=== PATIENT | female | born 1980 | race Caucasian/White ===

== ENCOUNTER 2024-04-29 08:03 | Emergency (ER) | payer OTHER, SELFPAY ==
--- NOTE | 2024-04-29 08:07 | ED_ITS ---
HPI - URI/Sore Throat General Chief Complaint: Upper Respiratory Infection Stated Complaint: Hot Flashes Time Seen by Provider: 04/29/24 08:06 Source: patient Mode of arrival: ambulatory Limitations: no limitations History of Present Illness HPI Narrative: Patient is a 44-year-old female who presents with burning sensation in chest that radiates up to her ears for 2 hours. Denies any chest pain, shortness of breath, numbness, tingling or weakness in extremities. Patient states she has had some congestion but does have severe allergies and does take allergy medicine daily. Denies any sore throat, cough, known fevers, chills, nausea, vomiting, diarrhea. Patient does have history of high blood pressure in states she has family history of heart disease. Patient also has anxiety and states the sensation has caused more anxiety due to concern for heart-related symptoms. Related Data Allergies Allergy/AdvReac Type Severity Reaction Status Date / Time Sulfa (Sulfonamide Allergy Unknown Hives Verified 04/29/24 08:24 Antibiotics) Review of Systems Review of Systems: All systems reviewed & are unremarkable except as noted in HPI and below Constitutional: Constitutional: Denies chills, Denies fatigue, Denies fever(s), Denies headache(s), Denies malaise and Denies weakness Eyes: Eyes: Denies blurry vision, Denies itchy eyes and Denies loss of vision ENT: Denies otalgia, Denies headache(s), Reports nasal congestion, Denies sinus pain and Denies sore throat Cardiovascular: Cardiovascular: Denies chest pain, Denies irregular heart rhythm and Denies dyspnea Respiratory: Respiratory: Denies cough and Denies dyspnea Gastrointestinal: Gastrointestinal: Denies abdominal pain, Denies diarrhea, Denies nausea and Denies vomiting Musculoskeletal: Musculoskeletal: Denies back pain, Denies myalgias and Denies arthralgias Integumentary/Breasts: Skin/Breast: Denies pruritus and Denies rash Neurologic: Denies headache(s), Denies loss of vision and Denies weakness Psychiatric: Psychiatric: Reports no additional psychiatric complaints Endocrine: Endocrine: Denies fatigue and Reports flushing Allergic/Immunologic: Allergic/Immunologic: Denies itchy eyes PMFSH Comments At time of signature, agree with nursing past medical, surgical, social and family history. There is no relevant family history pertinent to the presenting complaint. Exam Const: General: cooperative, healthy appearing, comfortable, no acute distress and well nourished Nutritional Appearance: well nourished Orientation/consciousness: patient oriented x3 Limitations: no limitations HENMT: Head: normal to inspection, normocephalic and atraumatic Ears: hearing grossly normal bilaterally, external ears normal, TM's normal bilaterally, EAC's normal and no periauricular adenopathy Face/Nose/Sinus: Normal external nose present, Abnormal mucous membranes and turbinates present erythematous bilateral and diffuse, normal facial exam, sinuses nontender and face symmetric Face and sinus: normal facial exam, sinuses nontender and face symmetric Mouth: Yes Normal oral and palatal mucosa present, Yes lip normal, Yes tongue normal, Yes Normal salivary glands and ducts present, Yes oropharynx normal and Yes moist mucous membranes Teeth and gingiva: dentition normal Throat: posterior oropharynx normal, tonsils normal and uvula midline Eyes: General: appearance normal, both eyes and all related structures Alignment and Position: alignment normal and position normal Periorbital: periorbital findings normal Eyelids: eyelids normal Pupils: Equal, round and reactive pupils present Neck: Neck: normal visual inspection, full ROM, no lymphadenopathy and supple Chest: Chest palpation & inspection: normal inspection of the chest and normal palpation of entire chest wall Resp: Effort & Inspection: normal respiratory effort and able to speak in complete sentences Auscultation: clear to auscultation bilaterally, no crackles, no rales, no rhonchi and no wheezes Cardio: Rate: regular rate Rhythm: regular rhythm Heart sounds: S1 normal heart sound present and S2 normal heart sound present GI: Inspection: normal to inspection Skin: General skin exam: normal color and no rashes or lesions noted Neuro: General: patient oriented x3 and moves all extremities Cranial nerves: Yes Equal, round and reactive pupils present Speech: normal speech Gait exam (Neuro): Normal gait present Extrem: General: normal to inspection, full ROM and no edema Psych: Appearance: grossly normal and well kempt Mental Status: mental status grossly normal Speech and movement: Normal speech and movement present Affect: normal affect Attitude: cooperative Thought process: Normal thought process present Course Course Emergency Course: Discharge instructions reviewed with patient, as well as provided in writing per nursing staff. The instructions also include specific and strict return/GO TO THE ER as well as f/u information. All questions have been answered, and the patient deny any further questions with discharge and discharge plan. Portions of this record may have been created with voice recognition software Level of Care: Express Care Visit Vital Signs Vital signs: Vital Signs Temperature 36.6 C 04/29/24 08:15 Pulse Rate 90 04/29/24 08:15 Respiratory Rate 16 04/29/24 08:15 Blood Pressure 141/76 H 04/29/24 08:15 Pulse Oximetry 100 04/29/24 08:15 Oxygen Delivery Room Air 04/29/24 08:15 Temperature 36.6 C 04/29/24 08:15 Pulse Rate 90 04/29/24 08:15 Respiratory Rate 16 04/29/24 08:15 Blood Pressure 141/76 H 04/29/24 08:15 Pulse Oximetry 100 04/29/24 08:15 Oxygen Delivery Room Air 04/29/24 08:15 Reviewed MDM - URI/Sore Throat MDM Narrative Medical decision making narrative: Discussed EKG results with patient. Patient states she was relieved. Denies any burning sensations at this time. Patient states she has also had changes in her control 2 weeks ago to a different hormone level. Patient states she is going to make appointment with PCP to follow up for full physical exam. Patient does states she had labs with her OBGYN in March. Discussed red flag symptoms and patient is able to repeat back signs and symptoms that require emergency room visit. Also discussed negative COVID in flu findings. Did discuss if symptoms progress to body aches, fever, chills, sore throat, cough those are signs of viral upper respiratory illness. Pt well hydrated appearing, in no respiratory distress, hemodynamically stable. Recommend supportive care. The patient is stable at time of discharge the clinical impression was discussed and the patient was given the opportunity to ask questions, which were addressed as completely as possible given the information available at present. Anticipatory guidance and return to care precautions were discussed and the importance of primary care follow-up was stressed and encouraged. The patient voiced understanding of the plan, indications to return, and the need for follow-up. Differential diagnosis considered: Bronchitis, Rivera virus, strep pharyngitis, allergic rhinitis, upper respiratory tract infection, sinusitis, rhinosinusitis, nasopharyngitis. viral pharyngitis, otitis media, otitis externa, otitis effusion, foreign body, cerumen impaction, viral syndrome, and influenza.? Exam findings show no acute concerns or changes; patient is non-toxic appearing and is in no distress.? Patient is appropriate for outpatient treatment and follow- up.? Differential Diagnosis Differential diagnosis: Likely other (Anxiety, less likely ACS) Medical Records Attestation: I reviewed the patient's medical records. Lab Data Attestation: I reviewed the patient's lab results. Labs: Lab Results 04/29/24 Range/Units 08:37 POC Influenza A Ag Negative (Negative) POC Influenza B Ag Negative (Negative) POC SARS CoV-2 Ag Negative (Negative) ECG Data EKG #1: Attestation: I personally reviewed and interpreted this ECG as follows: ECG completion date: 04/29/24 ECG completion time: 08:32 Prior ECG tracings: not available for review Interpretation: EKG: VR[80], LA int[157], QRS dur:[89], QT/QTc: [351/387], PRT axes: [36 31 11], no ST elevation or depression EKG Interpretation: normal rate and sinus rhythm Discharge Plan Discharge Clinical Impression: Burning in the chest, Anxiety Patient Disposition: Home, Self-Care Condition: Stable Instructions: Anxiety (ED) Additional Instructions: How do you know when anxiety is a medical problem? Everyone feels anxious or nervous once in a while. That is normal. But being extremely anxious or worried on most days for 6 months or longer is not normal. This is called generalized anxiety disorder. The disorder can make it hard to do everyday tasks. ? Generalized anxiety disorder is just 1 anxiety disorder. There are others, such as panic disorder and phobias. This article focuses on generalized anxiety disorder. ? What are the symptoms of extreme or severe anxiety? People with extreme or severe anxiety feel very worried or on edge much of the time. They can have trouble sleeping or forget things. Plus, they can have physical symptoms. For instance, people with severe anxiety often feel very tired and have tense muscles. Some get stomach aches or feel chest tightness. ? Should I see a doctor or nurse? See your doctor or nurse if you: 1.Are more anxious than you think is normal 2.Get overly anxious about things that other people handle more easily ? Your doctor or nurse can ask you questions that are designed to measure a person's anxiety level. If you do have a problem with anxiety, there are different treatments that can help. ? Is there anything I can do on my own to feel better? Yes. Exercise can help many people feel less anxious. It's also a good idea to cut down on or stop drinking coffee and other sources of caffeine. Caffeine can make anxiety worse. ? How is anxiety treated? Treatments include: ? 1.Psychotherapy - Psychotherapy involves meeting with a mental health counselor to talk about your feelings, relationships, and worries. Therapy can help you find new ways of thinking about your situation so that you feel less anxious. In therapy, you might also learn new skills to reduce anxiety. ? 2.Medicines - Medicines used to treat depression can relieve anxiety, too, even in people who are not depressed. Your doctor or nurse will decide which medicines are best for your situation. ? Some people have psychotherapy and take medicines at the same time. ? There is no reason to feel embarrassed about getting treatment for anxiety. Anxiety is a common problem. It affects all kinds of people. ? Keep in mind that it might take a little while to find the right treatment. People respond in different ways to medicines and therapy, so you might need to try a few approaches before you find the 1 that helps you most. The pineda is to not give up and to let your doctor or nurse know how you feel along the way. Are there herbal treatments I can take? Makers of herbal drugs sometimes claim that their products relieve anxiety. For example, herbs called kava kava and valerian are sold as treatments for anxiety. But there is no evidence that these treatments work. Plus, kava kava has been linked with serious liver damage. It might not be safe. What will my life be like? People with anxiety disorders often have to deal with some anxiety for the rest of their life. For some, anxiety comes and goes, but gets bad during times of stress. The good news is, many people find effective treatments or ways to deal with their anxiety. Your blood pressure was elevated above 120/80 today at Urgent Care. This puts you above the threshold for follow up visit with a primary care provider. High blood pressure does not usually cause any symptoms, however it may lead to kidney failure, stroke, heart disease just to name a few if untreated . Many people are anxious when seeing a provider or nurse. As a result, you are not diagnosed with hypertension at this time unless your blood pressure is persistently high at two office visits at least one week apart. Some things that can help lower blood pressure are lifestyle modifications, such as light exercise, decreased salt in diet, and weight loss. It is important to follow up with a PCP about this within 1 week. Patient Language: Kyrgyz Follow-up/Referrals: Yoselin,Doretha [Other] - 3 Days Time of Disposition: 08:44
[2024-04-29 08:15] VITALS: BP 141/76; PULSE 90; RESP 16; TEMP 36.6; O2SAT 100
--- OUTSIDE RECORDS SUMMARY | 2024-04-29 08:15 | XMS_ITS | Referral Summary ---
Author Organization [facility] [address] [address] [address] Care Team Providers Care Counter Stitcher Name Role Phone Cecile Mejia MD Unavailable [phone] No, Physician Primary Care Provider [phone] Encounters Date Type Department Care Team Description 03/17/2024 11:25 AM WATER QUALITY TECHNICIAN Ancillary Procedure [facility] [address] [place] [phone] Irregular menstruation 03/13/2024 11:30 AM WATER QUALITY TECHNICIAN Office Visit [facility] [place] [phone] Cecile Mejia MD Encounter for well woman exam with routine gynecological exam (Primary Dx); Encounter for routine examination for contraception; Irregular menstruation from Last 3 Months Allergies Active Allergy Reactions Criticality Noted Date Comments Cheese Itching,Rash Medium 03/05/2005 Hydrocodone-Acetamino phen Nausea And Vomiting Medium 05/30/2016 Iodinated Contrast Media Itching,Rash Medium 03/05/2005 Other Itching,Rash Medium 03/05/2005 Sulfa (Sulfonamide Antibiotics) Unknown,Other (See comments) Low 01/02/2014 To young to remember Medications simethicone 62.5 mg strip Take by mouth daily as needed Active cetirizine (ZyrTEC) 10 mg tablet Take 1 tablet (10 mg total) by mouth daily Active naproxen (ALEVE) 220 mg tablet Take 1 tablet (220 mg total) by mouth every 4 (four) hours as needed Active buPROPion XL (WELLBUTRIN XL) 150 mg 24 hr tabletIndications: Other depression TAKE 1 TABLET DAILY 90 tablet 3 3 Active metoprolol XL (TOPROL-XL) 25 mg extended release tablet Take 1 tablet (25 mg total) by mouth daily 3 Active montelukast (SINGULAIR) 10 mg tablet Take 1 tablet (10 mg total) by mouth daily 4 Active norethindrone-e.es tradioL-iron (Loestrin Fe 03/24, 28-Day,) 1 mg-20 mcg (21)/75 mg (7) per tabletIndications: Contraception Take 1 tablet by mouth daily Take one tablet daily 84 tablet 4 5 Active Active Problems No known active problems Social History Tobacco Use Types Packs/Day Years Used Date Smoking Tobacco: Never Passive Smoke Exposure: Never Smokeless Tobacco: Never Tobacco Cessation:Counseling Given: Not Answered Comments No Sex and Gender Information Value Date Recorded Sex Assigned at Not on file Legal Sex Female 9:31 AM WATER QUALITY TECHNICIAN Gender Identity Female 02/01/2021 9:00 AM WATER QUALITY TECHNICIAN Sexual Orientation Straight 02/01/2021 9: 00 AM WATER QUALITY TECHNICIAN Last Filed Vital Signs Vital Sign Reading Time Taken Comments Blood Pressure 136/68 03/13/2024 11:26 AM WATER QUALITY TECHNICIAN Pulse - - Temperature - - Respiratory Rate - - Oxygen Saturation - - Inhaled Oxygen Concentration - - Weight 107.5 kg (237 lb) 03/13/2024 11:26 AM WATER QUALITY TECHNICIAN Height 165.1 cm (5' 5 ) 03/13/2024 11:26 AM WATER QUALITY TECHNICIAN Body Mass Index 39.44 03/13/2024 11:26 AM WATER QUALITY TECHNICIAN Plan of Treatment Not on file Procedures Procedure Name Priority Date/Time Associated Diagnosis Comments CBC WITH AUTO DIFFERENTIAL Routine 03/25/2024 7:13 AM WATER QUALITY TECHNICIAN Irregular menstruation INSULIN, TOTAL Routine 03/25/2024 7:13 AM WATER QUALITY TECHNICIAN Irregular menstruation TSH Routine 03/25/2024 7:13 AM WATER QUALITY TECHNICIAN Irregular menstruation T4, FREE Routine 03/25/2024 7:13 AM WATER QUALITY TECHNICIAN Irregular menstruation T3, FREE Routine 03/25/2024 7:13 AM WATER QUALITY TECHNICIAN Irregular menstruation TESTOSTERONE, TOTAL AND FREE, SERUM Routine 03/25/2024 7:13 AM WATER QUALITY TECHNICIAN Irregular menstruation PROLACTIN Routine 03/25/2024 7:13 AM WATER QUALITY TECHNICIAN Irregular menstruation LIPID PANEL Routine 03/25/2024 7:13 AM WATER QUALITY TECHNICIAN Irregular menstruation COMPREHENSIVE METABOLIC PANEL Routine 03/25/2024 7:13 AM WATER QUALITY TECHNICIAN Irregular menstruation US TRANSVAGINAL Schedule Routine, Read Routine (OP Routine) 03/17/2024 11:22 AM WATER QUALITY TECHNICIAN Irregular menstruation THINPREP IMAGING PAP AND HPV MRNA E6/E7 REFLEX HPV 16,18/45 Routine 03/13/2024 1:54 PM WATER QUALITY TECHNICIAN Encounter for well woman exam with routine gynecological exam SCREENING MAMMOGRAM BILATERAL W WEN Schedule Routine, Read Routine (OP Routine) 10/02/2023 2:19 PM CDT Encounter for screening mammogram for malignant neoplasm of breast from Last 3 Months or Most Recently Relevant to Health Maintenance Results * (ABNORMAL) CBC with auto differential (03/25/2024 7:13 AM WATER QUALITY TECHNICIAN) WBC 8.6 3.8 - 10.8 Thousand/u L [facility] RBC, POC 4.26 3.80 - 5.10 Million/uL [facility] Hgb 13.3 11.7 - 15.5 g/dL [facility] Hct 39.8 35.0 - 45.0 % [facility] MCV 93.4 80.0 - 100.0 fL [facility] MCH 31.2 27.0 - 33.0 pg [facility] MCHC 33.4 32.0 - 36.0 g/dL [facility] Comment: For adults, a slight decrease in the calculated MCHC value (in the range of 30 to 32 g/dL) is most likely not clinically significant; however, it should be interpreted with caution in correlation with other red cell parameters and the patient's clinical condition. Rdw 11.6 11.0 - 15.0 % [facility] Platelets 340 140 - 400 Thousand/u L [facility] MPV 10.6 7.5 - 12.5 fL [facility] Neutrophils, abs 3,836 1,500 - 7,800 cells/uL [facility] Lymphocytes, abs 4,076(H) 850 - 3,900 cells/uL [facility] Monocyte abs 550 200 - 950 cells/uL [facility] Eosinophils, abs 77 15 - 500 cells/uL [facility] Basophils, abs 60 0 - 200 cells/uL [facility] Neutrophils 44.6 % [facility] Lymphocyte pct 47.4 % [facility] Monocytes 6.4 % [facility] Eosinophils 0.9 % [facility] Basophils 0.7 % [facility] Blood 03/25/2024 7:13 AM WATER QUALITY TECHNICIAN 03/25/2024 7:13 AM WATER QUALITY TECHNICIAN Narrative [facility] - 03/31/2024 8:17 PM WATER QUALITY TECHNICIAN FASTING:YES FASTING: YES Cecile Mejia MD LAB BLOOD ORDERABLES Monisha l Result [facility] [address] [facility] [place] [address] * Prolactin (03/25/2024 7:13 AM WATER QUALITY TECHNICIAN) Pathologist [facility] Prolactin 17.8 ng/mL [facility] Comment: Reference Range Females Non- 3.0-30.0 10.0-209.0 Postmenopausal 2.0-20.0 Blood 03/25/2024 7:13 AM WATER QUALITY TECHNICIAN 03/25/2024 7:13 AM WATER QUALITY TECHNICIAN Narrative [facility] - 03/31/2024 8:17 PM WATER QUALITY TECHNICIAN FASTING:YES FASTING: YES Cecile Mejia MD LAB BLOOD ORDERABLES Monisha l Result Performing Organization Address [facility] de Phone Number SAM [facility] [address] [place] [address] * Insulin, total (03/25/2024 7:13 AM WATER QUALITY TECHNICIAN) [facility] INSULIN 9.4 uIU/mL [facility] Comment: Reference Range < or = 18.4 Risk: Optimal < or = 18.4 Moderate NA High >18.4 Adult cardiovascular event risk category cut points (optimal, moderate, high) are based on Insulin Reference Interval studies performed at [facility] in 2021. Blood 03/25/2024 7:13 AM WATER QUALITY TECHNICIAN 03/25/2024 7:13 AM WATER QUALITY TECHNICIAN Narrative [facility] - 03/31/2024 8:17 PM WATER QUALITY TECHNICIAN FASTING:YES FASTING: YES Cecile Mejia MD LAB BLOOD ORDERABLES Monisha l Result Performing Organization Address [facility] de Phone Number [facility] [address] [place] [address] * Testosterone, Total and Free, Serum (03/25/2024 7:13 AM WATER QUALITY TECHNICIAN) [facility] Testosterone 26 2 - 45 ng/dL [facility] Comment: For additional information, please refer to https://education.Lendino/faq/MGB852 (This link is being provided for informational/educational purposes only.) (Note) This test was developed and its analytical performance characteristics have been determined by [facility]. It has not been cleared or approved by the FDA. This assay has been validated pursuant to the CLIA regulations and is used for clinical purposes. Testosterone, free 2.2 0.1 - 6.4 pg/mL [facility] Comment: (Note) This test was developed and its analytical performance characteristics have been determined by [facility]. It has not been cleared or approved by the FDA. This assay has been validated pursuant to the CLIA regulations and is used for clinical purposes. [facility] [address] [address],[address] [facility] [address] Armin Aguilera MD, PhD Sex hormone binding globulin 75.7 17 - 124 nmol/L [facility] Blood 03/25/2024 7:13 AM WATER QUALITY TECHNICIAN 03/25/2024 7:13 AM WATER QUALITY TECHNICIAN Narrative [facility] - 03/31/2024 8:17 PM WATER QUALITY TECHNICIAN FASTING:YES FASTING: YES Cecile Mejia MD LAB BLOOD ORDERABLES Monisha l Result [facility] [address] [place] [address], [address] [place] [phone] * T3, free (03/25/2024 7:13 AM WATER QUALITY TECHNICIAN) Free T3 3.6 2.3 - 4.2 pg/mL [facility] Blood 03/25/2024 7:13 AM WATER QUALITY TECHNICIAN 03/25/2024 7:13 AM WATER QUALITY TECHNICIAN Narrative [facility] - 03/31/2024 8:17 PM WATER QUALITY TECHNICIAN FASTING:YES FASTING: YES Cecile Mejia MD LAB BLOOD ORDERABLES Monisha l Result [facility] [address] [place] [address] * TSH (03/25/2024 7:13 AM WATER QUALITY TECHNICIAN) TSH 3.81 mIU/L [facility] Comment: Reference Range > or = 20 Years 0.40-4.50 Ranges First trimester 0.26-2.66 Second trimester 0.55-2.73 Third trimester 0.43-2.91 Blood 03/25/2024 7:13 AM WATER QUALITY TECHNICIAN 03/25/2024 7:13 AM WATER QUALITY TECHNICIAN Narrative [facility] - 03/31/2024 8:17 PM WATER QUALITY TECHNICIAN FASTING:YES FASTING: YES Cecile Mejia MD LAB BLOOD ORDERABLES Monisha l Result Performing Organization Address [facility]/ZIP Co de Phone Number SAM [facility] [address] [place] [address] * T4, free (03/25/2024 7:13 AM WATER QUALITY TECHNICIAN) Free T4 1.0 0.8 - 1.8 ng/dL [facility] Blood 03/25/2024 7:13 AM WATER QUALITY TECHNICIAN 03/25/2024 7:13 AM WATER QUALITY TECHNICIAN Narrative [facility] - 03/31/2024 8:17 PM WATER QUALITY TECHNICIAN FASTING:YES FASTING: YES Cecile Mejia MD LAB BLOOD ORDERABLES Monisha l Result Performing Organization Address [facility] de Phone Number [facility] [address] [place] [address] * (ABNORMAL) Lipid panel (03/25/2024 7:13 AM WATER QUALITY TECHNICIAN) Cholesterol 195 <200 mg/dL [facility] HDL 66 > OR = 50 mg/dL [facility] Triglycerides 113 <150 mg/dL [facility] LDL 108(H) mg/dL (calc) [facility] Comment: Reference range: <100 Desirable range <100 mg/dL for primary prevention; <70 mg/dL for patients with CHD or diabetic patients with > or = 2 CHD risk factors. LDL-C is now calculated using the Kobi-Rama calculation, which is a validated novel method providing better accuracy than the Friedewald equation in the estimation of LDL-C. Kobi SS et al. ELIZABETH. 2013;310(19): 6336-0457 (http://education.Inofile.[employer]/faq/AYZ183) Chol/HDL ratio 3.0 <5.0 (calc) [facility] Non-HDL, (LDL+VLDL) 129 <130 mg/dL (calc) [facility] Comment: For patients with diabetes plus 1 major ASCVD risk factor, treating to a non-HDL-C goal of <100 mg/dL (LDL-C of <70 mg/dL) is considered a therapeutic option. Blood 03/25/2024 7:13 AM WATER QUALITY TECHNICIAN 03/25/2024 7:13 AM WATER QUALITY TECHNICIAN Narrative [facility] - 03/31/2024 8:17 PM WATER QUALITY TECHNICIAN FASTING:YES FASTING: YES us Cecile Mejia MD LAB BLOOD ORDERABLES Monisha l Result [facility] [address] [place] [address] * Comprehensive metabolic panel (03/25/2024 7:13 AM WATER QUALITY TECHNICIAN) Pathologist [facility] Glucose 87 65 - 99 mg/dL [facility] Comment: Fasting reference interval BUN 14 7 - 25 mg/dL [facility] Creatinine 0.93 0.50 - 0.99 mg/dL [facility] eGFR 79 > OR = 60 mL/min/1.7 3m2 [facility] BUN/creat ratio SEE NOTE: 6 - 22 (calc) [facility] Comment: Not Reported: BUN and Creatinine are within reference range. Sodium 137 135 - 146 mmol/L [facility] Potassium, pl 4.2 3.5 - 5.3 mmol/L [facility] Chloride 102 98 - 110 mmol/L [facility] CO2 28 20 - 32 mmol/L [facility] Calcium 9.1 8.6 - 10.2 mg/dL [facility] Protein, sr 6.7 6.1 - 8.1 g/dL [facility] Albumin 3.9 3.6 - 5.1 g/dL [facility] GLOBULIN 2.8 1.9 - 3.7 g/dL (calc) [facility] Alb/glob ratio 1.4 1.0 - 2.5 (calc) [facility] Bilirubin, total 0.4 0.2 - 1.2 mg/dL [facility] Alk phos 65 31 - 125 U/L [facility] AST 14 10 - 30 U/L [facility] ALT (SGPT) 16 6 - 29 U/L [facility] Blood 03/25/2024 7:13 AM WATER QUALITY TECHNICIAN 03/25/2024 7:13 AM WATER QUALITY TECHNICIAN Narrative [facility] - 03/31/2024 8:17 PM WATER QUALITY TECHNICIAN FASTING:YES FASTING: YES us Cecile Mejia MD LAB BLOOD ORDERABLES Monisha l Result [facility] [address] [facility] [place] [address] * US Transvaginal (03/17/2024 11:22 AM WATER QUALITY TECHNICIAN) [place] No free fluid visualized [facility] Endometrial Thickness 4.1 mm&millim eters [facility] Anatomical Region Laterality Modality Pelvis N/A Ultrasound 03/17/2024 11:2 8 AM WATER QUALITY TECHNICIAN Impressions 03/19/2024 11:41 AM WATER QUALITY TECHNICIAN Uterus: Size 65 mm x 29 mm x 24 mm. Endometrial thickness, total 4.1 mm Right Ovary: Size 11 mm x 20 mm x 18 mm Left Ovary: Size 11 mm x 18 mm x 10 mm. Normal pelvic anatomy. Narrative Procedure Note Cecile Mejia MD - 03/19/2024 IMPRESSION: Uterus: Size 65 mm x 29 mm x 24 mm. Endometrial thickness, total 4.1 mm Right Ovary: Size 11 mm x 20 mm x 18 mm Left Ovary: Size 11 mm x 18 mm x 10 mm. Normal pelvic anatomy. Cecile Mejia MD IMG US PROCEDURES Final R esult * ThinPrep(R) Imaging Pap and HPV mRNA E6/E7 Reflex HPV 16,18/45 (03/13/2024 1:54 PM WATER QUALITY TECHNICIAN) CLINICAL INFORMATION: [facility] Comment:None given LMP [facility] Comment:None given Previous Pap [facility] Comment:None given Prev. Bx [facility] Comment:None given SOURCE: [facility] Comment:None given Pap, specimen adequacy [facility] Comment: Satisfactory for evaluation. Endocervical/transformation zone component present. Age and/or menstrual status not provided HPV interp [facility] Comment: Cytology Results: Negative for intraepithelial lesion or malignancy. COMMENTS [facility] Comment: This Pap test has been evaluated with computer assisted technology. Director Que [facility] Comment: PCM, CT(ASCP) CT Screening Location: [place] [address] [address] [place] [address] Comment [facility] Comment: EXPLANATORY NOTE: The Pap is a screening test for cervical cancer. It is not a diagnostic test and is subject to false negative and false positive results. It is most reliable when a satisfactory sample, regularly obtained, is submitted with relevant clinical findings and history, and when the Pap result is evaluated along with historic and current clinical information. Human papillomavirus RNA, High Risk E6/E7 Not Detected Not Detected [facility] Comment: Methodology: Performance Test Consultant-Mediated Amplification This assay detects E6/E7 viral messenger RNA (mRNA) from 14 high-risk HPV types (16,18,31,33,35,39,45,51,52,56,58,59,66,68). Cervical sources are required for HPV testing. If a vaginal source from a patient who has had a total hysterectomy with removal of cervix was submitted, please contact the testing laboratory for alternative testing options. For additional information, please refer to http://education.Lendino/faq/MNL232s6 (This link if provided for information/ educational purposes only.) Swab (Cervical) 03/13/2024 1 :54 PM WATER QUALITY TECHNICIAN 03/14/2024 2:30 AM WATER QUALITY TECHNICIAN us Cecile Mejia MD LAB CYTOLOGY ORDERABLES F inal Result [facility] [address] [address] [place] [address] [facility] [address] [place] [address] * SCREENING MAMMOGRAM BILATERAL W WEN (10/02/2023 2:19 PM CDT) Anatomical Region Laterality Modality Breast Bilateral Mammography Narrative 10/02/2023 4:29 PM CDT Examination: SCREENING MAMMOGRAM BILATERAL W WEN: 10/02/23 Clinical: Encounter for screening mammogram for malignant neoplasm of breast. Prior Study Comparisons: Comparison was made to the prior available relevant studies at the time of interpretation. Findings: Bilateral No significant masses, malignant type calcifications, skin thickening, nipple retraction, or significant lymphadenopathy is noted in either breast. The CAD review showed no significant findings. The breasts have scattered areas of fibroglandular density. The patient will be notified of results by letter. Impression: BI-RADS ATLAS category (overall): 2 - Benign There is no mammographic evidence of malignancy. Routine Screening Mammogram in 1 Yr is recommended for bilateral Overall Assessment: 2 - Benign us Bela Torres DO IMG MAMMO PROCEDURES Fi nal Result from Last 3 Months or Most Recently Relevant to Health Maintenance Insurance [facility] [place] [address] [place] [address] [facility] Care Teams Counter Stitcher Relationship Specialty Start Date End Date No, Physician PCP - General 12/28/23 [place] [address] [place] [address] Consulting Physician Obstetrics and Gynecology 12/28/23
--- OUTSIDE RECORDS SUMMARY | 2024-04-29 08:15 | XMS_ITS | Patient Health Record ---
Author Organization [facility] Address [address] [facility] [address] [place] [address] Support Name Relationship Address Phone Grazyna Hill Guarantor Unknown [phone] Reason For Referral No Information Medications Medication SIG (Take, Route, Frequency, Duration) Notes Start Date End Date Status Wal-itin 1 tab po daily *Pick strength-f orm from [employer] for eRX* 09/12/2010 Active buPROPion HCl ER (SR) 150 MG tab po daily Oral 09/12/2010 Active Aleve 220 MG 1 tab po prn Oral 09/12/2010 Active Ibuprofen 600 MG 1 tab po q 4-6 hours prn Oral 09/12/2010 Active Mari ? dose *Pick strength-f orm from [employer] for eRX* 09/12/2010 Active Z[address]ac [address] 20 MG 1 cap po bid Oral 09/12/2010 Active MARIBETH 1 po daily *Reorder from [employer] for eRx and Interaction Alerts* 09/12/2010 Active Plan Of Treatment No Information Insurance Providers Payer Name Payer Address Payer Phone Subscriber Number Group Number Insured Name Patient Relationship to Insured Coverage Start Date Coverage End Date [employer] - [employer] [address] [place], [place] [id number] Grazyna Hill Self - patient is the insured 1
--- OUTSIDE RECORDS SUMMARY | 2024-04-29 08:15 | XMS_ITS | Clinical Summary ---
Author Organization [facility] Address [address] [place] [address] Care Team Providers Care Roll Hauler Name Role Phone Doretha Novoa MD Primary Care Provider Source Comments [facility],non-owned Affiliates and Associated Physician Practices is amultiple site organization consisting of ambulatory clinics and hospital sitesin [place], [place], [place] and [place]. This disclosure is being madepursuant to the Care Everywhere program and may not contain all information available regarding this patient. Last updated 17.[facility] Allergies Active Allergy Reactions Criticality Noted Date Comments Cheese Itching,Rash Medium 03/05/2005 Contrast-Iodinated Agents For Ct/Other Itching,Rash Medium 03/05/2005 Hydrocodone-Acetaminoph en Nausea and/or Vomiting Medium 05/30/2016 Sulfa Antibiotics Unknown 09/12/2010 Sulfa Drugs Other,Unknown 01/02/2014 To young to remember Medications * Be aware that medications may not be up to date on this document. Alwaysverify current medications with the patient. Medication Sig Dispensed Refills Start Date End Date Status norgestimate-ethinyl estradiol (ORTHO-CYCLEN; MONONESSA; PREVIFEM; SPRINTEC) 0.25-35 MG-MCG tablet Take 1 (one) tablet by mouth once daily Active Cetirizine HCl (ALLERGY, CETIRIZINE, PO) Take by mouth once daily Active VITAMIN D PO Take by mouth once daily Active Multiple Vitamin (MULTIVITAMIN PO) Active [place]-3 Fatty Acids (OMEGA-3 PO) Take by mouth once daily Active ELDERBERRY PO Active buPROPion XL 24hr (Wellbutrin-XL) 150 MG tablet Take 1 (one) tablet by mouth once daily 90 tablet 1 01/03/2023 Active norgestim-eth estrad triphasic 0.18/0.215/0.25 MG-35 MCG tablet 01/04/2023 Active naproxen sodium (Aleve) 220 MG tablet Take 1 (one) tablet by mouth every 4 hours as needed Active metoprolol succinate XL 24hr (Toprol XL) 50 MG tablet Take 1 (one) tablet by mouth once daily 90 tablet 1 04/02/2023 Active montelukast (Singulair) 10 MG tablet TAKE 1 TABLET BY MOUTH EVERY DAY 90 tablet 08/17/2023 Active Active Problems Problem Noted Date Diagnosed Date Hypertension 01/03/2023 Class 2 obesity due to exces s calories with body mass index (BMI) of 37.0 to 37.9 in adult 12/20/2022 Environmental allergies 02/02/2019 12/21/19 Palpitations 02/02/2019 12/20/2022 Pain of right hand 01/28/2019 12/20/2022 Allergic rhinitis 01/02/2014 Major depression 01/02/2014 PCOS (polycystic ovarian syndrome) 01/02/2014 Resolved Problems Problem Noted Date Diagnosed Date Resolved Date Gallbladder mass 05/11/2016 12/20/2022 Family History Medical History Relation Name Comments None Known Brother Atrial Fibrillation Father Cancer - Skin, Melanoma Father Heart Failure Father Leukemia Maternal Grandfather CAD (Coronary Artery Disease) Maternal Grandmother CVA Maternal Grandmother Depression Mother High Blood Pressure Mother High Cholesterol Mother CAD (Coronary Artery Disease) Paternal Grandfather CVA Paternal Grandfather Cancer - Renal Paternal Grandmother None Known Sister Relation Name Status Comments Brother Alive Father Alive Maternal Grandfather Maternal Grandmother Mother Alive Paternal Grandfather Paternal Grandmother Alive Sister Alive Social History Tobacco Use Types Packs/Day Years Used Date Smoking Tobacco: Never Passive Smoke Exposure: Past Smokeless Tobacco: Never Tobacco Cessation:Counseling Given: No Alcohol Use Standard Drinks/Week Comments Not Asked 0 (1 standard drink = 0.6 oz pur e alcohol) once or twice a mo PHQ-2 Answer Date Recorded Patient Health Questionnaire-2 Score 2 04/02/2023 Sex and Gender Information Value Date Recorded Sex Assigned at Female 01/25/2023 8:25 AM MIRROR PAINTER Gender Identity Female 01/25/2023 8:25 AM MIRROR PAINTER Sexual Orientation Straight 01/25/2023 8: 25 AM MIRROR PAINTER Last Filed Vital Signs Vital Sign Reading Time Taken Comments Blood Pressure 122/70 04/02/2023 9:06 AM MIRROR PAINTER Pulse 94 04/02/2023 9:06 AM MIRROR PAINTER Temperature 36.2 C (97.2 F) 02/27/2023 9:03 AM MIRROR PAINTER Respiratory Rate 18 09/04/2020 10:18 AM CDT Oxygen Saturation 99% 04/02/2023 9:06 AM MIRROR PAINTER Inhaled Oxygen Concentration - - Weight 102.1 kg (225 lb) 04/02/2023 9:06 AM MIRROR PAINTER Height 165.1 cm (5' 5 ) 04/02/2023 9:06 AM MIRROR PAINTER Body Mass Index 37.44 04/02/2023 9:06 AM MIRROR PAINTER Plan of Treatment Health Maintenance Due Date Last Done Comments DTAP/TDAP/TD VACCINES (1 - Tdap) 2001 HEPATITIS B VACCINE (1 of 3 - 19+ 3-dose series) 2001 COVID-19 VACCINE ( - 2023-2 5 season) 2023 INFLUENZA VACCINE (#1) 2023 DEPRESSION SCREENING 03/05/2024 04/02/2023, 01/03/2023, 12/20/2022 MAMMOGRAM 08/01/2024 08/01/2022 PAP SMEAR 02/02/2025 02/02/2022 (Done Outside Per Patient) SCREENING FOR DIABETES 12/20/2025 12/20/2022, 2022 LIPID TESTING 12/21/2027 12/20/2022 ZOSTER VACCINE (1 of 2) 01/27/2032 HEPATITIS C SCREENING Completed 12/20/2022 HIV SCREENING Completed 12/20/2022 HIB VACCINE Aged Out No longer eligi ble based on patient's age to complete this topic HPV VACCINE Aged Out No longer eligi ble based on patient's age to complete this topic MENINGOCOCCAL (Group B) VACCINE Aged Out No longer eligible based on patient's age to complete this topic MENINGOCOCCAL VACCINE Aged Out No zee katie eligible based on patient's age to complete this topic PNEUMOCOCCAL VACCINE Aged Out No long er eligible based on patient's age to complete this topic Procedures Procedure Name Priority Date/Time Associated Diagnosis Comments COMPREHENSIVE METABOLIC PANEL Routine 12/20/2022 9:51 AM CDT Healthcare maintenance Elevated blood-pressure reading without diagnosis of hypertension Paresthesia of both feet Recurrent major depressive disorder, in partial remission (HCC) LIPID PROFILE Routine 12/20/2022 9:51 AM CDT Healthcare maintenance Elevated blood-pressure reading without diagnosis of hypertension HEPATITIS C ANTIBODY W RFLX PCR Routine 12/20/2022 9:51 AM CDT Need for hepatitis C screening test Healthcare maintenance HIV-1 HIV-2 ANTIBODY + HIV P24 AG PANEL Routine 12/20/2022 9:51 AM CDT Screening for HIV (human immunodeficiency virus) Healthcare maintenance from Last 3 Months or Most Recently Relevant to Health Maintenance Results * HEPATITIS C ANTIBODY W RFLX PCR (12/20/2022 9:51 AM CDT) Hepatitis C Antibody Non Reactive Non Reactive [facility] ACCOUNT BILL Comment:FASTING Blood BLOOD SPECIMEN / Unknown 12/20/2022 9:51 AM CDT 12/20/2022 Narrative Resulting Agency Comment Lab Testing performed at: [facility] [address] [facility] [id number] Doretha Novoa MD LAB - CHEMISTRY ORDERABLES [facility] ACCOUNT BILL [address] [place] [address] * HIV-1 HIV-2 ANTIBODY + HIV P24 AG PANEL (12/20/2022 9:51 AM CDT) HIV Screen 4th Generation w Reflex Non Reactive Non Reactive [facility] ACCOUNT BILL Comment: HIV Negative HIV-1/HIV-2 antibodies and HIV-1 p24 antigen were NOT detected. There is no laboratory evidence of HIV infection. FASTING Blood BLOOD SPECIMEN / Unknown 12/20/2022 9:51 AM CDT 12/20/2022 Narrative Resulting Agency Comment Lab Testing performed at: [facility] [address] [facility] [id number] Doretha Novoa MD LAB - CHEMISTRY ORDERABLES [facility] ACCOUNT BILL [address] [place] [address] * COMPREHENSIVE METABOLIC PANEL (12/20/2022 9:51 AM CDT) Glucose 87 70 - 99 mg/dL [facility] ACCOUNT BILL BUN 11 6 - 24 mg/dL [facility] ACCOUNT BILL Creatinine 0.87 0.57 - 1.00 mg/dL [facility] ACCOUNT BILL eGFR by CKD-EPI 86 >59 mL/min/1.7 3 [facility] ACCOUNT BILL BUN/Creatinine Ratio 13 9 - 23 [facility] ACCOUNT BILL Sodium 137 134 - 144 mmol/L [facility] ACCOUNT BILL Potassium 4.6 3.5 - 5.2 mmol/L [facility] ACCOUNT BILL Chloride 101 96 - 106 mmol/L [facility] ACCOUNT BILL CO2 20 20 - 29 mmol/L [facility] ACCOUNT BILL Calcium 9.5 8.7 - 10.2 mg/dL [facility] ACCOUNT BILL Protein Total 7.3 6.0 - 8.5 g/dL [facility] ACCOUNT BILL Albumin 4.3 3.9 - 4.9 g/dL [facility] ACCOUNT BILL Globulin Total 3.0 1.5 - 4.5 g/dL [facility] ACCOUNT BILL Albumin/Globulin Ratio 1.4 1.2 - 2.2 [facility] ACCOUNT BILL Bilirubin Total 0.3 0.0 - 1.2 mg/dL [facility] ACCOUNT BILL Alkaline Phosphatase 68 44 - 121 IU/L [facility] ACCOUNT BILL AST 21 0 - 40 IU/L [facility] ACCOUNT BILL ALT 21 0 - 32 IU/L [facility] ACCOUNT BILL Comment:FASTING Blood BLOOD SPECIMEN / Unknown 12/20/2022 9:51 AM CDT 12/20/2022 Narrative Resulting Agency Comment Lab Testing performed at: [facility] [address] [facility] [id number] Doretha Novoa MD LAB - CHEMISTRY ORDERABLES [facility] ACCOUNT BILL [address] [place] [address] * (ABNORMAL) LIPID PROFILE (12/20/2022 9:51 AM CDT) Cholesterol 208(H) 100 - 199 mg/dL [facility] ACCOUNT BILL Triglycerides 111 0 - 149 mg/dL [facility] ACCOUNT BILL HDL Cholesterol 85 >39 mg/dL [facility] ACCOUNT BILL VLDL Calculated 19 5 - 40 mg/dL [facility] ACCOUNT BILL LDL Calculated 104(H) 0 - 99 mg/dL [facility] ACCOUNT BILL Comment NOT AVAILABLE [facility] ACCOUNT BILL Comment: FASTING Result cannot be obtained for this observation. Blood BLOOD SPECIMEN / Unknown 12/20/2022 9:51 AM CDT 12/20/2022 Narrative Resulting Agency Comment Lab Testing performed at: [facility] [address] [facility] [id number] Doretha Novoa MD LAB - CHEMISTRY ORDERABLES [facility] ACCOUNT BILL [address] [place] [address] from Last 3 Months or Most Recently Relevant to Health Maintenance Care Teams Roll Hauler Relationship Specialty Start Date End Date Doretha Novoa MD [address] [place] [address] PCP - General Internal Medicine 02/27/23
--- OUTSIDE RECORDS SUMMARY | 2024-04-29 08:15 | XMS_ITS | Referral Summary ---
Author Organization [facility] Address [address] [place] [address] Care Team Providers Care Senior Clerk Name Role Phone Doretha Novoa MD Primary Care Provider Source Comments [facility],non-owned Affiliates and Associated Physician Practices is amultiple site organization consisting of ambulatory clinics and hospital sitesin [place], [place], [place] and [place]. This disclosure is being madepursuant to the Care Everywhere program and may not contain all information available regarding this patient. Last updated 17.[facility] Allergies Active Allergy Reactions Criticality Noted Date [...] daily Active Multiple Vitamin (MULTIVITAMIN PO) Active [place]-3 Fatty Acids (OMEGA-3 PO) Take by mouth [...] Date Resolved Date Gallbladder mass 05/11/2016 12/20/2022 Social History Tobacco Use Types Packs/Day Years [...] Sex Assigned at Female 01/25/2023 8:25 AM ENTERPRISE SYSTEMS MANAGER Gender Identity Female 01/25/2023 8:25 AM ENTERPRISE SYSTEMS MANAGER Sexual Orientation Straight 01/25/2023 8: 25 AM ENTERPRISE SYSTEMS MANAGER Last Filed Vital Signs Vital Sign Reading Time Taken Comments Blood Pressure 122/70 04/02/2023 9:06 AM ENTERPRISE SYSTEMS MANAGER Pulse 94 04/02/2023 9:06 AM ENTERPRISE SYSTEMS MANAGER Temperature 36.2 C (97.2 F) 02/27/2023 9:03 AM ENTERPRISE SYSTEMS MANAGER Respiratory Rate 18 09/04/2020 10:18 AM CDT Oxygen Saturation 99% 04/02/2023 9:06 AM ENTERPRISE SYSTEMS MANAGER Inhaled Oxygen Concentration - - Weight 102.1 kg (225 lb) 04/02/2023 9:06 AM ENTERPRISE SYSTEMS MANAGER Height 165.1 cm (5' 5 ) 04/02/2023 9:06 AM ENTERPRISE SYSTEMS MANAGER Body Mass Index 37.44 04/02/2023 9:06 AM ENTERPRISE SYSTEMS MANAGER Plan of Treatment Not on file Procedures [...] Agency Comment Lab Testing performed at: [facility] [address] [facility] [id number] Doretha Novoa MD LAB - CHEMISTRY ORDERABLES [facility] ACCOUNT BILL [address] [place] [address] * HIV-1 HIV-2 ANTIBODY + HIV P24 [...] Resulting Agency Comment [facility] [address] [facility] [id number] Doretha Novoa MD LAB - CHEMISTRY ORDERABLES [facility] ACCOUNT BILL [address] [place] [address] * COMPREHENSIVE METABOLIC PANEL (12/20/2022 9:51 AM [...] Agency Comment Lab Testing performed at: [facility] [address] [facility] [id number] Doretha Novoa MD LAB - CHEMISTRY ORDERABLES Performing Organization Address City/[facility]/ZIP Co de Phone Number [facility] ACCOUNT BILL [address] [place] [address] * (ABNORMAL) LIPID PROFILE (12/20/2022 9:51 AM [...] Agency Comment Lab Testing performed at: [facility] [address] [facility] [id number] Doretha Novoa MD LAB - CHEMISTRY ORDERABLES Performing Organization Address City/[facility]/ZIP Co de Phone Number [facility] ACCOUNT BILL [address] [place] [address] from Last 3 Months or Most Recently Relevant to Health Maintenance Care Teams Senior Clerk Relationship Specialty Start Date End Date Doretha Novoa MD [address] [place] [address] PCP - General Internal Medicine 02/27/23
--- OUTSIDE RECORDS SUMMARY | 2024-04-29 08:15 | XMS_ITS ---
Author Organization [facility] Address [address] [place] [address] Care Team Providers Care Can Filler Name Role Phone zzzzMigration, zzzzProvider Unavailable Unav ailable REASON FOR VISIT [facility] [place] Encounters Encounter Location Date Provider Diagnosis [facility] [address] [place] [address] 12/23/2022 zzzzProvider zzzzMigration Plan Of Treatment No Information Progress Notes * ROBERTOBecki GUTHRIEB: 2 (44 yo F)Acc No.[id number]:12/23/2022 Patient: Grazyna MEHTA :1980 A ge:42 Y S ex:Female Address:[address] [place], [address] Subjective: * Chief Complaints: * E MR-Benito * Medical History: * Surgical History: * Hospitalization/Major Diagno stic Procedure: * Medications: Objective: * Vitals: * Physical Examination: Assessment: Plan: * Treatment: * Procedure Codes: * * Date:
--- OUTSIDE RECORDS SUMMARY | 2024-04-29 08:15 | XMS_ITS | Patient Health Summary ---
Author Organization [facility] Address [address] [place] [address] Care Team Providers Care Stockroom Clerk Name Role Phone Doretha Novoa MD Primary Care Provider Note from [facility],non-owned Affiliates and Associated Physician Practices is amultiple site organization consisting of ambulatory clinics and hospital sitesin [place], [place], [place] and [place]. This disclosure is being madepursuant to the Care Everywhere program and may not contain all information available regarding this patient. Last updated 17.[facility] Allergies * Cheese(Itching,Rash) -Medium Criticality * Contrast-Iodinated Agents For Ct/Other(Itching,Rash) -Medium Criticality * Hydrocodone-Acetaminophen(Nausea and/or Vomiting) -Medium Criticality * Sulfa Antibiotics(Unknown) * Sulfa Drugs(Other,Unknown) Medications * Be aware that medications may not be up to date on this document. Alwaysverify current medications with the patient. * norgestimate-ethinyl estradiol (ORTHO-CYCLEN; MONONESSA; PREVIFEM; SPRINTEC) 0.25-35 MG-MCG tablet Take 1 (one) tablet by mouth once daily * Cetirizine HCl (ALLERGY, CETIRIZINE, PO) Take by mouth once daily * VITAMIN D PO Take by mouth once daily * Multiple Vitamin (MULTIVITAMIN PO) * Ninole-3 Fatty Acids (OMEGA-3 PO) Take by mouth once daily * ELDERBERRY PO * buPROPion XL 24hr (Wellbutrin-XL) 150 MG tablet(Started 01/03/2023) Take 1 (one) tablet by mouth once daily 1 refill by 01/03/2024 * norgestim-eth estrad triphasic 0.18/0.215/0.25 MG-35 MCG tablet(Started 01/04/2023) * naproxen sodium (Aleve) 220 MG tablet Take 1 (one) tablet by mouth every 4 hours as needed * metoprolol succinate XL 24hr (Toprol XL) 50 MG tablet(Started 04/02/2023) Take 1 (one) tablet by mouth once daily 1 refill by 04/01/2024 * montelukast (Singulair) 10 MG tablet(Started 08/17/2023) TAKE 1 TABLET BY MOUTH EVERY DAY Active Problems Problem Noted Date Diagnosed Date [...] Sex Assigned at Female 01/25/2023 8:25 AM GLASS POLISHER Gender Identity Female 01/25/2023 8:25 AM GLASS POLISHER Sexual Orientation Straight 01/25/2023 8: 25 AM GLASS POLISHER Last Filed Vital Signs Vital Sign Reading Time Taken Comments Blood Pressure 122/70 04/02/2023 9:06 AM GLASS POLISHER Pulse 94 04/02/2023 9:06 AM GLASS POLISHER Temperature 36.2 C (97.2 F) 02/27/2023 9:03 AM GLASS POLISHER Respiratory Rate 18 09/04/2020 10:18 AM CDT Oxygen Saturation 99% 04/02/2023 9:06 AM GLASS POLISHER Inhaled Oxygen Concentration - - Weight 102.1 kg (225 lb) 04/02/2023 9:06 AM GLASS POLISHER Height 165.1 cm (5' 5 ) 04/02/2023 9:06 AM GLASS POLISHER Body Mass Index 37.44 04/02/2023 9:06 AM GLASS POLISHER Procedures * METANEPHRINES FRACTIONATED PLASMA(Performed 01/29/2023) Performed for Hypertension, unspecified type, Nonintractable headache, unspecified chronicity pattern, unspecified headache type, Facial flushing * INTERPRETATION REFLEXED(Performed 12/20/2022) Performed for Need for hepatitis C screening test, Healthcare maintenance * HEPATITIS C ANTIBODY W RFLX PCR(Performed 12/20/2022) Performed for Need for hepatitis C screening test, Healthcare maintenance * HIV-1 HIV-2 ANTIBODY + HIV P24 AG PANEL(Performed 12/20/2022) Performed for Screening for HIV (human immunodeficiency virus), Healthcare maintenance * FOLATE(Performed 12/20/2022) Performed for Paresthesia of both feet, Healthcare maintenance * VITAMIN D 25-HYDROXY(Performed 12/20/2022) Performed for Paresthesia of both feet, Healthcare maintenance * VITAMIN B12(Performed 12/20/2022) Performed for Paresthesia of both feet, Healthcare maintenance * HEMOGLOBIN A1C(Performed 12/20/2022) Performed for Class 2 obesity due to excess calories with body mass index (BMI) of 37.0 to 37.9 in adult, unspecified whether serious comorbidity present, PCOS (polycystic ovarian syndrome), Elevatedblood-pressure reading without diagnosis of hypertension, Screening for diabetes mellitus, Healthcare maintenance * TSH REFLEX FREE T4(Performed 12/20/2022) Performed for Healthcare maintenance, Class 2 obesity due to excess calories with body mass index (BMI) of 37.0 to 37.9 in adult, unspecified whether serious comorbidity present, Elevated blood-pressure reading without diagnosis of hypertension, Paresthesia of both feet, Recurrent major depressive disorder, in partial remission (HCC) * LIPID PROFILE(Performed 12/20/2022) Performed for Healthcare maintenance, Elevated blood-pressure reading without diagnosis of hypertension * COMPREHENSIVE METABOLIC PANEL(Performed 12/20/2022) Performed for Healthcare maintenance, Elevated blood-pressure reading without diagnosis of hypertension, Paresthesia of both feet, Recurrent major depressive disorder, in partial remission (HCC) * CBC W AUTO DIFFERENTIAL(Performed 12/20/2022) Performed for Healthcare maintenance, Elevated blood-pressure reading without diagnosis of hypertension, Paresthesia of both feet, Recurrent major depressive disorder, in partial remission (HCC) Results * METANEPHRINES FRACTIONATED PLASMA (01/29/2023 10:03 AM GLASS POLISHER) Normetanephrine 139.1 0.0 - 218.9 pg/mL [facility] ACCOUNT BILL Metanephrine <25.0 0.0 - 88.0 pg/mL [facility] ACCOUNT BILL Blood BLOOD SPECIMEN / Unknown 01/29/2023 10:03 AM GLASS POLISHER 01/29/2023 Narrative [facility] ACCOUNT BILL - 02/08/2023 6:08 PM GLASS POLISHER Test(s) [id number], Pl; [id number], Pl was developed and its performance characteristics determined by [facility]. It has not been cleared or approved by the Food and Drug Administration. Resulting Agency Comment Lab Testing performed at: [facility] [phone] Doretha Novoa MD LAB - CHEMISTRY ORDERABLES Performing Organization Address [facility] de Phone Number [facility] ACCOUNT BILL [address] [place] [address] * INTERPRETATION REFLEXED (12/20/2022 9:51 AM CDT) Interpretation [facility] ACCOUNT BILL Comment: Not infected with HCV unless early or acute infection is suspected (which may be delayed in an immunocompromised individual), or other evidence exists to indicate HCV infection. FASTING 12/20/2022 9:51 AM CDT 12/20/2022 Narrative Resulting Agency Comment Lab Testing performed at: [facility] [address] [place] [phone] Doretha Novoa MD LAB - SEROLOGY ORDERABLES Performing Organization Address City/[facility] Co de Phone Number [facility] ACCOUNT BILL [address] [place] [address] * HEPATITIS C ANTIBODY W RFLX PCR (12/20/2022 9:51 AM CDT) Hepatitis C Antibody Non Reactive Non Reactive [facility] ACCOUNT BILL Comment:FASTING Blood BLOOD SPECIMEN / Unknown 12/20/2022 9:51 AM CDT 12/20/2022 Narrative Resulting Agency Comment Lab Testing performed at: [facility] [address] [facility] [phone] Doretha Novoa MD LAB - CHEMISTRY ORDERABLES Performing Organization Address [facility] Co de Phone Number [facility] ACCOUNT BILL [address] [place] [address] * HIV-1 HIV-2 ANTIBODY + HIV P24 AG PANEL (12/20/2022 9:51 AM CDT) Pathologist [facility] HIV Screen 4th Generation w Reflex Non Reactive Non Reactive [facility] ACCOUNT BILL Comment: HIV Negative HIV-1/HIV-2 antibodies and HIV-1 p24 antigen were NOT detected. There is no laboratory evidence of HIV infection. FASTING Blood BLOOD SPECIMEN / Unknown 12/20/2022 9:51 AM CDT 12/20/2022 Narrative Resulting Agency Comment Lab Testing performed at: [facility] [id number] [facility] [place] [phone] Doretha Novoa MD LAB - CHEMISTRY ORDERABLES Performing Organization Address [facility] de Phone Number [facility] ACCOUNT BILL [address] [place] [address] * TSH REFLEX FREE T4 (12/20/2022 9:51 AM CDT) Pathologist [facility] TSH 2.700 0.450 - 4.500 uIU/mL [facility] ACCOUNT BILL Comment:FASTING Blood BLOOD SPECIMEN / Unknown 12/20/2022 9:51 AM CDT 12/20/2022 Narrative Resulting Agency Comment Lab Testing performed at: [facility] [address] [facility] [phone] Doretha Novoa MD LAB - CHEMISTRY ORDERABLES [facility] ACCOUNT BILL [address] [place] [address] * HEMOGLOBIN A1C (12/20/2022 9:51 AM CDT) Hemoglobin A1c 5.5 4.8 - 5.6 % [facility] ACCOUNT BILL Comment: . Prediabetes: 5.7 - 6.4 Diabetes: >6.4 Glycemic control for adults with diabetes: <7.0 FASTING Blood BLOOD SPECIMEN WITH EDTA / Unknown 12/20/2022 9:51 AM CDT 12/20/2022 Narrative Resulting Agency Comment Lab Testing performed at: [facility] [phone] Doretha Novoa MD LAB - CHEMISTRY ORDERABLES Performing Organization Address [facility] Co de Phone Number [facility] ACCOUNT BILL [address] [place] [address] * VITAMIN D 25-HYDROXY (12/20/2022 9:51 AM CDT) Vitamin D, 25 Hydroxy 58.9 30.0 - 100.0 ng/mL [facility] ACCOUNT BILL Comment: Vitamin D deficiency has been defined by the [place] of Medicine and an Endocrine Society practice guideline as a level of serum 25-OH vitamin D less than 20 ng/mL (1,2). The Endocrine Society went on to further define vitamin D insufficiency as a level between 21 and 29 ng/mL (2). 1. IOM ([place] of Medicine). 2010. Dietary reference intakes for calcium and D. [place]: The National Academies Press. 2. Brent MF, Rodrigo [place], Elder CID, et al. Evaluation, treatment, and prevention of vitamin D deficiency: an Endocrine Society clinical practice guideline. JCEM. 2010; 96(7):1911-30. FASTING Blood BLOOD SPECIMEN / Unknown 12/20/2022 9:51 AM CDT 12/20/2022 Narrative Resulting Agency Comment Lab Testing performed at: [facility] [place] [phone] Doretha Novoa MD LAB - CHEMISTRY ORDERABLES [facility] ACCOUNT BILL [address] [place] [address] * CBC WITH DIFFERENTIAL (12/20/2022 9:51 AM CDT) WBC 8.5 3.4 - 10.8 x10E3/uL [facility] ACCOUNT BILL RBC 4.40 3.77 - 5.28 x10E6/uL [facility] ACCOUNT BILL Hemoglobin 13.6 11.1 - 15.9 g/dL [facility] ACCOUNT BILL Hematocrit 40.2 34.0 - 46.6 % [facility] ACCOUNT BILL MCV 91 79 - 97 fL [facility] ACCOUNT BILL MCH 30.9 26.6 - 33.0 pg [facility] ACCOUNT BILL MCHC 33.8 31.5 - 35.7 g/dL [facility] ACCOUNT BILL RDW 11.8 11.7 - 15.4 % [facility] ACCOUNT BILL Platelet Count 355 150 - 450 x10E3/uL [facility] ACCOUNT BILL Granulocytes % 63 Not Estab. % [facility] ACCOUNT BILL Lymphocytes % 32 Not Estab. % [facility] ACCOUNT BILL Monocytes % 4 Not Estab. % [facility] ACCOUNT BILL Eosinophils % 0 Not Estab. % [facility] ACCOUNT BILL Basophils % 1 Not Estab. % [facility] ACCOUNT BILL Immature Cells NOT AVAILABLE [facility] ACCOUNT BILL Comment:Result cannot be obt ained for this observation. Granulocytes Absolute 5.3 1.4 - 7.0 x10E3/uL [facility] ACCOUNT BILL Lymphocytes Absolute 2.7 0.7 - 3.1 x10E3/uL [facility] ACCOUNT BILL Monocytes Absolute 0.4 0.1 - 0.9 x10E3/uL [facility] ACCOUNT BILL Eosinophils Absolute 0.0 0.0 - 0.4 x10E3/uL [facility] ACCOUNT BILL Basophils Absolute 0.1 0.0 - 0.2 x10E3/uL [facility] ACCOUNT BILL Immature Granulocytes 0 Not Estab. % [facility] ACCOUNT BILL Immature Granulocytes Absolute 0.0 0.0 - 0.1 x10E3/uL [facility] ACCOUNT BILL nRBC NOT AVAILABLE [facility] ACCOUNT BILL Comment:Result cannot be obt ained for this observation. Comment Hematology NOT AVAILABLE [facility] ACCOUNT BILL Comment: FASTING Result cannot be obtained for this observation. Blood BLOOD SPECIMEN / Unknown 12/20/2022 9:51 AM CDT 12/20/2022 Narrative Resulting Agency Comment Lab Testing performed at: [facility] [address] [facility] [phone] Doretha Novoa MD LAB - HEMATOLOG Y ORDERABLES [facility] ACCOUNT BILL [address] [place] [address] * COMPREHENSIVE METABOLIC PANEL (12/20/2022 9:51 AM [...] Agency Comment Lab Testing performed at: [facility] [address] [phone] Doretha Novoa MD LAB - CHEMISTRY ORDERABLES Performing Organization Address City/[facility] Co de Phone Number [facility] ACCOUNT BILL [address] [place] [address] * FOLATE (12/20/2022 9:51 AM CDT) Folate 12.0 >3.0 ng/mL [facility] ACCOUNT BILL Comment: A serum folate concentration of less than 3.1 ng/mL is considered to represent clinical deficiency. FASTING Blood BLOOD SPECIMEN / Unknown 12/20/2022 9:51 AM CDT 12/20/2022 Narrative Resulting Agency Comment Lab Testing performed at: [facility] [address] [phone] Doretha Novoa MD LAB - CHEMISTRY ORDERABLES Performing Organization Address [facility] Co de Phone Number [facility] ACCOUNT BILL [address] [place] [address] * VITAMIN B12 (12/20/2022 9:51 AM CDT) Vitamin B12 351 232 - 1,245 pg/mL [facility] ACCOUNT BILL Comment:FASTING Blood BLOOD SPECIMEN / Unknown 12/20/2022 9:51 AM CDT 12/20/2022 Narrative Resulting Agency Comment Lab Testing performed at: [facility] [address] [phone] Doretha Novoa MD LAB - CHEMISTRY ORDERABLES Performing Organization Address City/[facility] Co de Phone Number [facility] ACCOUNT BILL [address] [place] [address] * (ABNORMAL) LIPID PROFILE (12/20/2022 9:51 AM [...] Resulting Agency Comment Lab Testing performed at: [facility] [address] [facility] [phone] Doretha Novoa MD LAB - CHEMISTRY ORDERABLES [facility] ACCOUNT BILL [address] [place] [address] Care Teams Stockroom Clerk Relationship Specialty Start Date End Date Doretha Novoa MD [address] [facility] [address] PCP - General Internal Medicine 02/27/23
--- OUTSIDE RECORDS SUMMARY | 2024-04-29 08:15 | XMS_ITS | Clinical Summary ---
[facility] Organization [email or web address] [address] [facility] [place] [address] Care Team Providers Care Oxidized Finish Plater Name Role Phone Cecile Mejia MD Unavailable No, Physician Primary Care Provider [phone] Allergies Active Allergy Reactions Criticality Noted Date [...] Take one tablet daily 84 tablet 4 Active Active Problems No known active problems Encounters Date Type Department Care Team Description 03/17/2024 11:25 AM SALES SERVICE ASSISTANT Ancillary Procedure [facility] [place] [phone] Irregular menstruation 03/13/2024 11:30 AM SALES SERVICE ASSISTANT Office Visit [facility] [place] [phone] Cecile Mejia MD Encounter for well woman exam with routine gynecological exam (Primary Dx); Encounter for routine examination for contraception; Irregular menstruation from Last 3 Months Surgical History Surgery Date Site/Laterality Comments LAPAROSCOPIC CHOLECYSTECTOMY 03/05/2016 - 03/04/2017 WISDOM TOOTH EXTRACTION 03/05/2006 - 03/04/2007 Medical History Medical History Date Comments Depression Hypertension Family History Medical History Relation Name Comments Atrial fibrillation Father Melanoma Father metastatic Leukemia Maternal Grandfather Depression Maternal Grandmother Hypertension Maternal Grandmother Hypertension Paternal Grandfather Stroke Paternal Grandfather Hypertension Paternal Grandmother Breast cancer Neg Hx Colon cancer Neg Hx Ovarian cancer Neg Hx Uterine cancer Neg Hx Relation Name Status Comments Father Alive Maternal Grandfather Maternal Grandmother Mother Alive Paternal Grandfather Paternal Grandmother Social History Tobacco Use Types Packs/Day Years Used Date Smoking Tobacco: Never Passive Smoke Exposure: Never Smokeless Tobacco: Never Tobacco Cessation:Counseling Given: Not Answered Comments No Sex and Gender Information Value Date Recorded Sex Assigned at Not on file Legal Sex Female 9:31 AM SALES SERVICE ASSISTANT Gender Identity Female 02/01/2021 9:00 AM SALES SERVICE ASSISTANT Sexual Orientation Straight 02/01/2021 9: 00 AM SALES SERVICE ASSISTANT Obstetrics History Para Term AB IAB SAB Ectopic Multiple Livin g Live Births 0 0 0 0 0 0 0 0 0 0 0 Last Filed Vital Signs Vital Sign Reading Time Taken Comments Blood Pressure 136/68 03/13/2024 11:26 AM SALES SERVICE ASSISTANT Pulse - - Temperature - - Respiratory Rate - - Oxygen Saturation - - Inhaled Oxygen Concentration - - Weight 107.5 kg (237 lb) 03/13/2024 11:26 AM SALES SERVICE ASSISTANT Height 165.1 cm (5' 5 ) 03/13/2024 11:26 AM SALES SERVICE ASSISTANT Body Mass Index 39.44 03/13/2024 11:26 AM SALES SERVICE ASSISTANT Plan of Treatment Health Maintenance Due Date Last Done Comments Depression Screening 1982 Hepatitis C Screening 1982 DTaP/Tdap/Td Vaccine (1 - Tdap) 1993 Varicella Vaccines (1 of 2 - 13+ 2-dose series) 1995 Hepatitis B Screening 01/27/2000 Influenza Vaccine (#1) 2023 Breast Cancer Screening-Mammogram 10/01/2024 10/02/2023, 08/01/2022 Cervical Cancer Screening 03/13/20252024, 02/09/2023, 02/07/2022, Additional history exists Regular Well Visit/Exam 18-64 03/13/2025 03/13/2024, 02/09/2023, 02/07/2022, Additional history exists HPV Vaccines Aged Out No longer eligi ble based on patient's age to complete this topic Pneumococcal vaccine <65 Aged Out No longer eligible based on patient's age to complete this topic Procedures Procedure Name Priority Date/Time Associated Diagnosis Comments CBC WITH AUTO DIFFERENTIAL Routine 03/25/2024 7:13 AM SALES SERVICE ASSISTANT Irregular menstruation INSULIN, TOTAL Routine 03/25/2024 7:13 AM SALES SERVICE ASSISTANT Irregular menstruation TSH Routine 03/25/2024 7:13 AM SALES SERVICE ASSISTANT Irregular menstruation T4, FREE Routine 03/25/2024 7:13 AM SALES SERVICE ASSISTANT Irregular menstruation T3, FREE Routine 03/25/2024 7:13 AM SALES SERVICE ASSISTANT Irregular menstruation TESTOSTERONE, TOTAL AND FREE, SERUM Routine 03/25/2024 7:13 AM SALES SERVICE ASSISTANT Irregular menstruation PROLACTIN Routine 03/25/2024 7:13 AM SALES SERVICE ASSISTANT Irregular menstruation LIPID PANEL Routine 03/25/2024 7:13 AM SALES SERVICE ASSISTANT Irregular menstruation COMPREHENSIVE METABOLIC PANEL Routine 03/25/2024 7:13 AM SALES SERVICE ASSISTANT Irregular menstruation US TRANSVAGINAL Schedule Routine, Read Routine (OP Routine) 03/17/2024 11:22 AM SALES SERVICE ASSISTANT Irregular menstruation THINPREP IMAGING PAP AND HPV MRNA E6/E7 REFLEX HPV 16,18/45 Routine 03/13/2024 1:54 PM SALES SERVICE ASSISTANT Encounter for well woman exam with routine gynecological exam SCREENING MAMMOGRAM BILATERAL W WEN Schedule Routine, Read Routine (OP Routine) 10/02/2023 2:19 PM CDT Encounter for screening mammogram for malignant neoplasm of breast from Last 3 Months or Most Recently Relevant to Health Maintenance Results * (ABNORMAL) CBC with auto differential (03/25/2024 7:13 AM SALES SERVICE ASSISTANT) WBC 8.6 3.8 - 10.8 Thousand/u L [...] [facility] Blood 03/25/2024 7:13 AM SALES SERVICE ASSISTANT 03/25/2024 7:13 AM SALES SERVICE ASSISTANT Narrative [facility] - 03/31/2024 8:17 PM SALES SERVICE ASSISTANT FASTING:YES FASTING: YES Cecile Mejia MD LAB BLOOD ORDERABLES Monisha l Result Performing Organization Address [facility] de Phone Number [facility] [address] [place] [address] * Prolactin (03/25/2024 7:13 AM SALES SERVICE ASSISTANT) Pathologist [facility] Prolactin 17.8 ng/mL [facility] Comment: Reference Range Females Non- 3.0-30.0 10.0-209.0 Postmenopausal 2.0-20.0 Blood 03/25/2024 7:13 AM SALES SERVICE ASSISTANT 03/25/2024 7:13 AM SALES SERVICE ASSISTANT Narrative [facility] - 03/31/2024 8:17 PM SALES SERVICE ASSISTANT FASTING:YES FASTING: YES Cecile Mejia MD LAB BLOOD ORDERABLES Monisha l Result Performing Organization Address [facility] de Phone Number [facility] [address] [place] [address] * Insulin, total (03/25/2024 7:13 AM SALES SERVICE ASSISTANT) Pathologist [facility] INSULIN 9.4 uIU/mL [facility] Comment: Reference Range < or = 18.4 Risk: Optimal < or = 18.4 Moderate NA High >18.4 Adult cardiovascular event risk category cut points (optimal, moderate, high) are based on Insulin Reference Interval studies performed at [facility] in 2021. Blood 03/25/2024 7:13 AM SALES SERVICE ASSISTANT 03/25/2024 7:13 AM SALES SERVICE ASSISTANT Narrative [facility] - 03/31/2024 8:17 PM SALES SERVICE ASSISTANT FASTING:YES FASTING: YES Cecile Mejia MD LAB BLOOD ORDERABLES Monisha l Result [facility] [address] [place] [address] * Testosterone, Total and Free, Serum (03/25/2024 7:13 AM SALES SERVICE ASSISTANT) Pathologist [facility] Testosterone 26 2 - 45 ng/dL [facility] Comment: For additional information, please refer to https://education.[employer]/faq/EZB469 (This link is being provided for informational/educational purposes only.) (Note) This test was developed and its analytical performance characteristics have been determined by [employer]. It has not been cleared or approved by the FDA. This assay has been validated pursuant to the CLIA regulations and is used for clinical purposes. Testosterone, free 2.2 0.1 - 6.4 pg/mL [facility] Comment: (Note) This test was developed and its analytical performance characteristics have been determined by [employer]. It has not been cleared or approved by the FDA. This assay has been validated pursuant to the CLIA regulations and is used for clinical purposes. [facility] [address] [facility] [place] [address],[address] [facility] [address] Armin Aguilera MD, PhD Sex hormone binding globulin 75.7 17 - 124 nmol/L [facility] [facility] Blood 03/25/2024 7:13 AM SALES SERVICE ASSISTANT 03/25/2024 7:13 AM SALES SERVICE ASSISTANT Narrative [facility] - 03/31/2024 8:17 PM SALES SERVICE ASSISTANT FASTING:YES FASTING: YES Cecile Mejia MD LAB BLOOD ORDERABLES Monisha l Result [facility] [address] [address], [address] [place] [address] * T3, free (03/25/2024 7:13 AM SALES SERVICE ASSISTANT) Free T3 3.6 2.3 - 4.2 pg/mL [facility] Blood 03/25/2024 7:13 AM SALES SERVICE ASSISTANT 03/25/2024 7:13 AM SALES SERVICE ASSISTANT Narrative [facility] - 03/31/2024 8:17 PM SALES SERVICE ASSISTANT FASTING:YES FASTING: YES Cecile Mejia MD LAB BLOOD ORDERABLES Monisha l Result Performing Organization Address [facility]/ZIP Co de Phone Number [facility] [address] [place] [address] * TSH (03/25/2024 7:13 AM SALES SERVICE ASSISTANT) Pathologist [facility] TSH 3.81 mIU/L [facility] Comment: Reference Range > or = 20 Years 0.40-4.50 Ranges First trimester 0.26-2.66 Second trimester 0.55-2.73 Third trimester 0.43-2.91 Blood 03/25/2024 7:13 AM SALES SERVICE ASSISTANT 03/25/2024 7:13 AM SALES SERVICE ASSISTANT Narrative [facility] - 03/31/2024 8:17 PM SALES SERVICE ASSISTANT FASTING:YES FASTING: YES Cecile Mejia MD LAB BLOOD ORDERABLES Monisha l Result Performing Organization Address [facility]/ZIP Co de Phone Number [facility] [address] [place] [address] * T4, free (03/25/2024 7:13 AM SALES SERVICE ASSISTANT) Free T4 1.0 0.8 - 1.8 ng/dL [facility] Blood 03/25/2024 7:13 AM SALES SERVICE ASSISTANT 03/25/2024 7:13 AM SALES SERVICE ASSISTANT Narrative [facility] - 03/31/2024 8:17 PM SALES SERVICE ASSISTANT FASTING:YES FASTING: YES Cecile Mejia MD LAB BLOOD ORDERABLES Monisha mad[place] Result Performing Organization Address [facility]/ZIP Co de Phone Number [facility] [address] [facility] [place] [address] * (ABNORMAL) Lipid panel (03/25/2024 7:13 AM SALES SERVICE ASSISTANT) [facility] Cholesterol 195 <200 mg/dL [facility] [...] LDL-C. Kobi SS et al. ELIZABETH. 2013;310(19): 3545-5411 (http://education.[employer]/faq/BUS823) Chol/HDL ratio 3.0 <5.0 (calc) [facility] Non-HDL, (LDL+VLDL) 129 <130 mg/dL (calc) [facility] Comment: For patients with diabetes plus 1 major ASCVD risk factor, treating to a non-HDL-C goal of <100 mg/dL (LDL-C of <70 mg/dL) is considered a therapeutic option. Blood 03/25/2024 7:13 AM SALES SERVICE ASSISTANT 03/25/2024 7:13 AM SALES SERVICE ASSISTANT Narrative [facility] - 03/31/2024 8:17 PM SALES SERVICE ASSISTANT FASTING:YES FASTING: YES Cecile Mejia MD LAB BLOOD ORDERABLES Monisha l Result Performing Organization Address City/[facility]/ZIP Co de Phone Number [facility] [address] [facility] [place] [address] * Comprehensive metabolic panel (03/25/2024 7:13 AM SALES SERVICE ASSISTANT) Glucose 87 65 - 99 mg/dL [facility] [...] [facility] Blood 03/25/2024 7:13 AM SALES SERVICE ASSISTANT 03/25/2024 7:13 AM SALES SERVICE ASSISTANT Narrative [facility] - 03/31/2024 8:17 PM SALES SERVICE ASSISTANT FASTING:YES FASTING: YES Cecile Mejia MD LAB BLOOD ORDERABLES Monisha l Result [facility] [address] [place] [address] * US Transvaginal (03/17/2024 11:22 AM SALES SERVICE ASSISTANT) Cul de Sac No free fluid visualized [facility] Endometrial Thickness 4.1 mm&millim eters [facility] Anatomical Region Laterality Modality Pelvis N/A Ultrasound 03/17/2024 11:2 8 AM SALES SERVICE ASSISTANT Impressions 03/19/2024 11:41 AM SALES SERVICE ASSISTANT Uterus: Size 65 mm x 29 mm [...] mm x 10 mm. Normal pelvic anatomy. us Cecile Mejia MD IMG US PROCEDURES Final R esult * ThinPrep(R) Imaging Pap and HPV mRNA E6/E7 Reflex HPV 16,18/45 (03/13/2024 1:54 PM SALES SERVICE ASSISTANT) CLINICAL INFORMATION: [facility] Comment:None given LMP [facility] Comment:None given Previous Pap [facility] Comment:None given Prev. Bx [facility] Comment:None given SOURCE: [facility] Comment:None given Pap, specimen adequacy [facility] Comment: Satisfactory for evaluation. Endocervical/transformation zone component present. Age and/or menstrual status not provided HPV interp [facility] Comment: Cytology Results: Negative for intraepithelial lesion or malignancy. COMMENTS [facility] Comment: This Pap test has been evaluated with computer assisted technology. International Marketing Specialist [facility] Comment: PCM, CT(ASCP) CT Screening Location: [place] [address] [address] [place] [address] [facility] Comment: EXPLANATORY NOTE: The Pap is [...] High Risk E6/E7 Not Detected Not Detected [facility] Comment: Methodology: Industrial Health And Safety Professor-Mediated Amplification This assay detects E6/E7 viral messenger RNA (mRNA) from 14 high-risk HPV types (16,18,31,33,35,39,45,51,52,56,58,59,66,68). Cervical sources are required for HPV testing. If a vaginal source from a patient who has had a total hysterectomy with removal of cervix was submitted, please contact the testing laboratory for alternative testing options. For additional information, please refer to http://education.[employer]/faq/NWV276r3 (This link if provided for information/ educational purposes only.) Swab (Cervical) 03/13/2024 1 :54 PM SALES SERVICE ASSISTANT 03/14/2024 2:30 AM SALES SERVICE ASSISTANT Cecile Mejia MD LAB CYTOLOGY ORDERABLES F inal Result [place] [address] [place] [address] [facility] [address] [place] [address] * SCREENING MAMMOGRAM BILATERAL W WEN (10/02/2023 [...] Overall Assessment: 2 - Benign us Bela Liu Cherryquique DO IMG MAMMO PROCEDURES Fi nal Result from Last 3 Months or Most Recently Relevant to Health Maintenance Insurance [facility] CHO[facility] PLUS [facility] PLUS [facility] PLUS Care Teams Oxidized Finish Plater Relationship Specialty Start Date End Date No, Physician PCP - General 12/28/23 [place] [address] [place] [address] Consulting Physician Obstetrics and Gynecology 12/28/23
--- OUTSIDE RECORDS SUMMARY | 2024-04-29 08:16 | XMS_ITS | Clinical Summary ---
Author Organization [facility] Address [address] [place] [address] Care Team Providers Care Vmware Consultant Name Role Phone Paresh Barron MD Primary Care Provider [phone] Allergies Active Allergy Reactions Criticality Noted Date Comments Hydrocodone-Acetaminophen Nausea and Vomiting Medium 0 05/30/2016 Sulfa (Sulfonamide Antibiotics) Unknown 12/05 Medications buPROPion HCl (WELLBUTRIN SR) 150 mg Sustained Release 12 hour tablet Take 150 mg by mouth daily. Active norgestimate-eth inyl estradiol (ORTHO TRI-CYCLEN) 0.18/0.215/0.25 mg-35 mcg (28) tablet Take 1 Tablet by mouth daily . 03/10/2016 Active cetirizine (ZyrTEC) 10 mg tablet Take 10 mg by mouth daily. Active naproxen sodium (ALEVE) 220 mg Tablet Take 220 mg by mouth every 4 hours as needed for Pain, Moderate. Active SIMETHICONE (GAS-X ORAL) Take by mouth 1 time daily as needed. Active ojxxb-d-rhkvlehe idase (BEANO) 150 unit Tablet Take by mouth. Active Active Problems Problem Noted Date Diagnosed Date Palpitations 02/02/2019 Environmental allergies 02/02/2019 Chronic pain of right thumb 02/02/2019 Pain of right hand 01/28/2019 Gallbladder mass 05/11/2016 Major depression 01/02/2014 PCOS (polycystic ovarian syndrome) 01/02/2014 Allergic rhinitis 01/02/2014 Family History Medical History Relation Name Comments Healthy Father Hypertension Maternal Aunt Heart Attack Maternal Grandmother Stroke Maternal Grandmother Healthy Mother Stroke Paternal Grandfather Relation Name Status Comments Father Alive Maternal Aunt Maternal Grandmother Mother Alive Paternal Grandfather Social History Tobacco Use Types Packs/Day Years Used Date Smoking Tobacco: Never Alcohol Use Standard Drinks/Week Comments Yes 3 (1 standard drink = 0.6 oz pur e alcohol) NO WINE SINCE 04/2016 Comments No Sex and Gender Information Value Date Recorded Sex Assigned at Not on file Legal Sex Female 2:11 PM CDT Gender Identity Not on file Sexual Orientation Not on file 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 Not on file Not on file Not on file Last Filed Vital Signs Vital Sign Reading Time Taken Comments Blood Pressure 138/88 01/28/2019 9:08 AM ENTERTAINER OR VARIETY ARTIST Pulse 88 01/28/2019 9:08 AM ENTERTAINER OR VARIETY ARTIST Temperature 36.9 C (98.4 F) 05/30/2016 1:00 PM CDT Respiratory Rate 16 01/28/2019 9:08 AM ENTERTAINER OR VARIETY ARTIST Oxygen Saturation 98% 01/28/2019 9:08 AM ENTERTAINER OR VARIETY ARTIST Inhaled Oxygen Concentration - - Weight 92.5 kg (204 lb) 01/28/2019 9:08 AM ENTERTAINER OR VARIETY ARTIST Height 165.1 cm (5' 5 ) 01/28/2019 9:08 AM ENTERTAINER OR VARIETY ARTIST Body Mass Index 33.95 01/28/2019 9:08 AM ENTERTAINER OR VARIETY ARTIST Plan of Treatment Health Maintenance Due Date Last Done Comments DTAP/TDAP/TD VACCINES (1 - Tdap) 2001 HEPATITIS B VACCINES (1 of 3 - 19+ 3-dose series) 2001 CERVICAL CANCER SCREENING 10/13/2016 10/13/2013 BREAST CANCER SCREENING 2022 INFLUENZA VACCINE (#1) 2023 01/28/2019 Preventative Visit- Commercial 03/05/2024 01/28/2019, 01/02/2014 HPV VACCINES Aged Out No longer eligi ble based on patient's [place] [address] [facility] [address] [employer] PL[employer] (INTERNAL) [facility] Advance Directives For more information, please contact: [phone] * Full Code (Latest Code Status on File) Date Activated Date Inactivated Comments 05/30/2016 10:37 AM 05/30/2016 4:12 PM * Full Code Date Activated Date Inactivated Comments 05/30/2016 8:45 AM 05/30/2016 10:37 AM Care Teams Vmware Consultant Relationship Specialty [place] [address] [place] [id number] PCP - General Internal Medicine 01/28/19
--- OUTSIDE RECORDS SUMMARY | 2024-04-29 08:16 | XMS_ITS ---
Author Organization [facility] Address [address] [place] [address] Care Team Providers Care Boat Captain Name Role Phone zzzzMigration, zzzzProvider Unavailable Unav ailable Allergies Allergen (clinical drug ingredient) Drug/Non Drug Allergy documented on EMR Reaction Allergy Type Onset Date Status Substance with sulfonamide structure and antibacterial mechanism of action (substance) Sulfa Antibiotics Unknown Drug Allergy 09/12/2010 Active REASON FOR VISIT EMR-[facility] Medications Medication SIG (Take, Route, Frequency, Duration) Notes Start Date End Date Status buPROPion HCl ER (SR) 150 MG tab po daily Oral 09/12/2010 Active Aleve 220 MG 1 tab po prn Oral 09/12/2010 Active Ibuprofen 600 MG 1 tab po q 4-6 hours prn Oral 09/12/2010 Active [address]ac [address] 20 MG 1 cap po bid Oral 09/12/2010 Active MARIBETH 1 po daily *Reorder from [facility] for eRx and Interaction Alerts* 09/12/2010 Active Wal-itin 1 tab po daily *Pick strength-f orm from [facility] for eRX* 09/12/2010 Active Mari ? dose *Pick strength-f orm from [facility] for eRX* 09/12/2010 Active Encounters Encounter Location Date Provider Diagnosis [facility] [address] [place] [address] 12/24/2022 zzzzProvider zzzzMigration Plan Of Treatment No Information Progress Notes * Ying ARMSTRONG: 2 (44 yo F)Acc No.[id number]:12/24/2022 Patient: Khalida KARINAJerod LAWLERa :1980 A ge:42 Y S ex:Female Address:[address], [place], [address] Subjective: * Chief Complaints: * E MR-Benito * Medical History: * Surgical History: * Hospitalization/Major Diagno stic Procedure: * Medications: T akingIbuprofen 600 MG Tablet 1 tab po q 4-6 hours prn Oral buPROPion HCl ER (SR) 150 MG Tablet Extended Release 12 Hour tab po daily Oral Mari ? dose , Notes to Pharmacist: *Pick strength-form from [facility] for eRX*Wal-itin 1 tab po daily , Notes to Pharmacist: *[facility]*Zantac [address] 20 MG Tablet 1 cap po bid Oral Aleve 220 MG Capsule 1 tab po prn Oral MARIBETH 1 po daily , Notes to Pharmacist: *[facility]*Taking Ibuprofen 600 MG Tablet 1 tab po q 4-6 hours prn Oral Taking buPROPion HCl ER (SR) 150 MG Tablet Extended Release 12 Hour tab po daily Oral Taking Mari ? dose , Notes to Pharmacist: *[facility]*Taking Wal-itin 1 tab po daily , Notes to Pharmacist: *[facility]*Taking Zantac [address] 20 MG Tablet 1 cap po bid Oral Taking Aleve 220 MG Capsule 1 tab po prn Oral Taking MARIBETH 1 po daily , Notes to Pharmacist: *[facility] and Interaction Alerts* * Allergies: S ulfa Antibiotics: Allergy - Onset Date 09/12/2010 Objective: * Vitals: * Physical Examination: Assessment: Plan: * Treatment: * Procedure Codes: * * Date:
--- OUTSIDE RECORDS SUMMARY | 2024-04-29 08:17 | XMS_ITS | Clinical Summary ---
Author Organization [facility] Address [address] [place] [address] Care Team Providers Care Lung Puller Name Role Phone Unavailable Primary Care Provider Unavailabl e Social History Tobacco Use Types Packs/Day Years Used Date Smoking Tobacco: Never Assessed Comments Unknown Sex and Gender Information Value Date Recorded Sex Assigned at Not on file Legal Sex Female 8:30 PM CDT Gender Identity Not on file Sexual Orientation Not on file Plan of Treatment Health Maintenance Due Date Last Done Comments Cervical Cancer Screening Pa p Smear (Age 30 to 64) Every 3 Years 1982 Annual Physical 1985 Hepatitis C 01/27/2000 DTaP, Tdap and Td Vaccines ( 1 - Tdap) 2001 Hepatitis B Vaccines (1 of 3 - 19+ 3-dose series) 2001 Cervical Cancer Screening Pa p with HPV Testing (Age 30 to 64) Every 5 Years 01/27/2012 Cervical Cancer Screening with HPV 01/27/2012 Mammogram Screening 2022 COVID-19 Vaccine ( - 2023-2 5 season) 2023 Influenza Adult (#1) 2023 HPV Vaccines Aged Out No longer eligi ble based on patient's age to complete this topic Meningococcal B Vaccine Aged Out No l onger eligible based on patient's age to complete this topic Meningococcal Vaccine Aged Out No zee katie eligible based on patient's age to complete this topic Pneumococcal Vaccine: Pediat rics (0 to 5 Years) and At-Risk Patients (6 to 64 Years) Aged Out No longer eligible b ased on patient's age to complete this topic RSV Immunizations Under 20 Months Aged Out No longer eligible based on patient's age to complete this topic
--- NOTE | 2024-04-29 08:24 | ECG_ITS ---
Test Date: 2024-04-29 08:32:40 Measurements Intervals [place] Rate: 80 P: 36 [place]: 157 QRS: 31 QRSD: 89 T: 11 QT: 351 QTc: 406 Interpretive Statements SINUS RHYTHM BORDERLINE ST-T WAVE ABNORMALITY- INFERIOR LEADS BASELINE ARTIFACT- I, II, III, AVR, AVL, AVF, V3-V5 BORDERLINE ECG No previous ECG available for comparison Electronically Signed On 04-29-2024 08:34:09 STATISTICIAN MATHEMATICAL by Aram Lozano D.O.
[2024-04-29 08:43] LABS: EDCOVIDSCREEN Negative (Negative); EDINFLUASCREEN Negative (Negative); EDINFLUBSCREEN Negative (Negative)
== END 2024-04-29 08:45 | disposition home or self-care (01) ==
PROVIDERS: Emergency Provider Nurse Practitioner Family
DX: R07.89 Other chest pain (principal); F41.9 Anxiety disorder, unspecified; Z20.822 Contact with and (suspected) exposure to COVID-19; I10 Essential (primary) hypertension
CPT/HCPCS: 87426; 87804; 93005; 99203; G0463

== ENCOUNTER 2024-05-01 11:34 | Emergency (ER) | payer OTHER, SELFPAY ==
[2024-05-01 11:35] VITALS: BP 167/93; PULSE 104; RESP 16; TEMP 36.4; O2SAT 100
[2024-05-01 12:03] LABS: Basophils Absolute Auto 0.1 K/mm3 (0.0-0.1); Basophils Percent Auto 0.7 % (0.2-1.2); Eosinophils Percent Auto 0.2 % (0-4.4); Hematocrit 40.1 % (37.0-47.0); Immature Granulocyte Absolute 0.01 K/mm3 (0.00-0.031); Immature Granulocyte Percent A 0.1 % (0-0.5); Lymphocytes Absolute Auto 3.11 K/mm3 (0.9-3.2); Lymphocytes Percent Auto 36.6 % (18.3-44.2); Mean Corpuscular HGB Conc 32.4 g/dl (32-36); Mean Corpuscular Hemoglobin 30.7 pg (26-34); Mean Corpuscular Volume 94.6 fl (80-100); Mean Platelet Volume 9.6 fl (7.4-10.4); Monocytes Absolute Auto 0.5 K/mm3 (0.1-0.6); Monocytes Percent Auto 5.7 % (2.6-8.5); Neutrophils Absolute Auto 4.8 K/mm3 (1.3-6.7); Neutrophils Percent Auto 56.7 % (45.5-73.1); Platelet Count Result 325 k/mm3 (150-375); Red Blood Count 4.24 M/mm3 (4.2-5.4); Red Cell Distribution Width 12.7 % (11.5-14.5); White Blood Count 8.5 K/mm3 (4.5-10.0)
[2024-05-01 12:14] LABS: INR 0.9; Prothrombin Time 12.6 Seconds (11.1-14.7)
[2024-05-01 12:15] LABS: Alanine Aminotransferase 22 U/L (6-35); Albumin Level 3.8 g/dL (3.5-5.1); Alkaline Phosphatase 65 U/L (38-126); Anion Gap 10 mmol/L (4-12); Aspartate Amino Transferase 28 U/L (14-36); Bilirubin,Total 0.5 mg/dL (0.2-1.3); Blood Urea Nitrogen 12 mg/dL (7-17); Calcium 9.4 mg/dL (8.4-10.2); Carbon Dioxide 24 mmol/L (22-30); Chloride 104 mmol/L (98-107); Estimated CRCL calculation 99 ml/min; Estimated Glomerular Filt Rate > 60; Glucose 98 mg/dL (65-110); Lipase 75 U/L (23-300); Partial Thromboplastin Time 23.6 Seconds (22.3-36.8); Potassium 4.1 mmol/L (3.4-5.0); Sodium 138 mmol/L (137-145)
[2024-05-01 12:26] LABS: Troponin I < 0.012 ng/mL (0.000-0.034)
--- NOTE | 2024-05-01 12:45 | ED.CHESTPAIN ---
HPI - Chest Pain General Chief Complaint: Chest Pain <Tracy Velazquez PA-C - Last Filed: 05/02/24 09:09> Stated Complaint: chest pain, <Tracy Velazquez PA-C - Last Filed: 05/02/24 09:09> Time Seen by Provider: 05/01/24 12:45 <Tracy Velazquez PA-C - Last Filed: 05/02/24 09:09> Focused HPI: This is a 44 year old female that presents to the ER for burning chest pain. Reports this has been intermittent over the last couple of days. Reports recently switching her control. Today she has started to have more tightness which prompted her to be seen. Denies shortness of breath or lower extremity edema. Reports history of hypertension. She is not a smoker. Reports family history of CAD. GENERAL: Well-appearing, well-nourished, and in no acute distress. HEAD: Normocephalic, atraumatic. CHEST: Clear to auscultation. ?No respiratory distress. HEART: Regular rate and rhythm.? NEURO: ?Alert and oriented x3. Patient screened in triage and initial orders placed.? ?Additional care and disposition to be based upon?diagnostic testing and treatment. <Tracy Velazquez PA-C - Last Filed: 05/02/24 09:09> History of Present Illness HPI narrative: Patient 44-year-old female presents emergency department chief complaint of burning chest. Patient reports in the left last couple days after she switch her oral contraceptive medication for patient for emergent care they recommended she come to the emergency department for evaluation. <Kareem Pavon MD - Last Filed: 05/01/24 15:29> Related Data Allergies/Adverse Reactions: Allergies Allergy/AdvReac Type Severity Reaction Status Date / Time Sulfa (Sulfonamide Allergy Unknown Hives Verified 05/01/24 11:40 Antibiotics) <Tracy Velazquez PA-C - Last Filed: 05/02/24 09:09> Review of Systems Review of Systems: A 10 system review of systems was completed on the patient and is negative except for what is stated in the HPI. Nursing and ancillary documentation was reviewed. <Kareem Pavon MD - Last Filed: 05/01/24 15:29> PMFSH Past Medical History Medical History: Medical History History of hypertension <Tracy Velazquez PA-C - Last Filed: 05/02/24 09:09> Social History Social History: Social History Smoking status: Never smoker <Tracy Velazquez PA-C - Last Filed: 05/02/24 09:09> Exam Narrative: GENERAL: Well-appearing, well-nourished, and in no acute distress. HEAD: Normocephalic, atraumatic. EYES: PERRLA and EOMI. ENT: Nares clear, no rhinorrhea or epistaxis. Mucous membranes moist. NECK: Supple. CHEST: Clear to auscultation. No respiratory distress. HEART: Regular rate and rhythm. No murmur heard. Normal peripheral pulses. ABDOMEN: Soft, nontender, nondistended, normal active bowel sounds. EXTREMITIES: Normal range of motion. No edema. SKIN: Warm, dry, no rash. NEURO: No focal deficits. Alert and oriented x3. PSYCH: Normal mood and affect. <Kareem Pavon MD - Last Filed: 05/01/24 15:29> Course Vital Signs Vital signs: Vital Signs Temperature 97.6 F 05/01/24 11:35 Pulse Rate 104 H 05/01/24 11:35 Respiratory Rate 16 05/01/24 11:35 Blood Pressure 167/93 H 05/01/24 11:35 Pulse Oximetry 100 05/01/24 11:35 Oxygen Delivery Room Air 05/01/24 11:35 Temperature 97.6 F 05/01/24 15:45 Pulse Rate 80 05/01/24 15:45 Respiratory Rate 17 05/01/24 15:45 Blood Pressure 131/82 05/01/24 15:45 Pulse Oximetry 100 05/01/24 15:45 Oxygen Delivery Room Air 05/01/24 14:20 <Tracy Velazquez PA-C - Last Filed: 05/02/24 09:09> Vital Signs Temperature 97.6 F 05/01/24 11:35 Pulse Rate 104 H 05/01/24 11:35 Respiratory Rate 16 05/01/24 11:35 Blood Pressure 167/93 H 05/01/24 11:35 Pulse Oximetry 100 05/01/24 11:35 Oxygen Delivery Room Air 05/01/24 11:35 Temperature 97.6 F 05/01/24 15:45 Pulse Rate 80 05/01/24 15:45 Respiratory Rate 17 05/01/24 15:45 Blood Pressure 131/82 05/01/24 15:45 Pulse Oximetry 100 05/01/24 15:45 Oxygen Delivery Room Air 05/01/24 14:20 <Kareem Pavon MD - Last Filed: 05/01/24 15:29> MDM - Chest Pain MDM Narrative Medical decision making narrative: Differential diagnosis includes ACS, atypical chest pain, noncardiac chest pain, Laboratory studies were obtained on the patient showed normal CBC normal CMP chest x-ray was within normal limits EKG showed no acute findings initial troponin was negative at 3 hour troponin was negative. <Kareem Pavon MD - Last Filed: 05/01/24 15:29> Lab Data Result diagrams: 05/01/24 11:56 05/01/24 11:56 <Tracy Velazquez PA-C - Last Filed: 05/02/24 09:09> Labs: Lab Results 05/01/24 05/01/24 Range/Units 11:56 14:49 WBC 8.5 (4.5-10.0) K/mm3 RBC 4.24 (4.2-5.4) M/mm3 Hgb 13.0 (12.0-15.0) g/dL Hct 40.1 (37.0-47.0) % MCV 94.6 (80-100) fl MCH 30.7 (26-34) pg MCHC 32.4 (32-36) g/dl RDW 12.7 (11.5-14.5) % Plt Count 325 (150-375) k/mm3 MPV 9.6 (7.4-10.4) fl Immature Gran % (Auto) 0.1 (0-0.5) % Neut % (Auto) 56.7 (45.5-73.1) % Lymph % (Auto) 36.6 (18.3-44.2) % [place] % (Auto) 5.7 (2.6-8.5) % Eos % (Auto) 0.2 (0-4.4) % Baso % (Auto) 0.7 (0.2-1.2) % Lymph # (Auto) 3.11 (0.9-3.2) K/mm3 [place] # (Auto) 0.5 (0.1-0.6) K/mm3 Eos # (Auto) 0.0 (0-0.3) K/mm3 Baso # (Auto) 0.1 (0.0-0.1) K/mm3 Abs Immat Gran (auto) 0.01 (0.00-0.031) K/mm3 Absolute Neuts (auto) 4.8 (1.3-6.7) K/mm3 Absolute Nucleated RBC 0.000 (0.0-0.012) K/mm3 Nucleated RBC % 0.0 (0.0-0.2) % PT 12.6 (11.1-14.7) Seconds INR 0.9 APTT 23.6 (22.3-36.8) Seconds Sodium 138 (137-145) mmol/L Potassium 4.1 (3.4-5.0) mmol/L Chloride 104 (98-107) mmol/L Carbon Dioxide 24 (22-30) mmol/L Anion Gap 10 (4-12) mmol/L BUN 12 (7-17) mg/dL Creatinine 0.78 (0.7-1.0) mg/dL Estim Creat Clear Calc 99 ml/min Estimated GFR > 60 (59 - ) Glucose 98 (65-110) mg/dL Calcium 9.4 (8.4-10.2) mg/dL Total Bilirubin 0.5 (0.2-1.3) mg/dL AST 28 (14-36) U/L ALT 22 (6-35) U/L Alkaline Phosphatase 65 (38-126) U/L Troponin I < 0.012 < 0.012 (0.000-0.034) ng/mL Total Protein 8.0 (6.3-8.2) g/dL Albumin 3.8 (3.5-5.1) g/dL Lipase 75 (23-300) U/L <Tracy Velazquez PA-C - Last Filed: 05/02/24 09:09> Lab Results 05/01/24 05/01/24 Range/Units 11:56 14:49 WBC 8.5 (4.5-10.0) K/mm3 RBC 4.24 (4.2-5.4) M/mm3 Hgb 13.0 (12.0-15.0) g/dL Hct 40.1 (37.0-47.0) % MCV 94.6 (80-100) fl MCH 30.7 (26-34) pg MCHC 32.4 (32-36) g/dl RDW 12.7 (11.5-14.5) % Plt Count 325 (150-375) k/mm3 MPV 9.6 (7.4-10.4) fl Immature Gran % (Auto) 0.1 (0-0.5) % Neut % (Auto) 56.7 (45.5-73.1) % Lymph % (Auto) 36.6 (18.3-44.2) % [place] % (Auto) 5.7 (2.6-8.5) % Eos % (Auto) 0.2 (0-4.4) % Baso % (Auto) 0.7 (0.2-1.2) % Lymph # (Auto) 3.11 (0.9-3.2) K/mm3 [place] # (Auto) 0.5 (0.1-0.6) K/mm3 Eos # (Auto) 0.0 (0-0.3) K/mm3 Baso # (Auto) 0.1 (0.0-0.1) K/mm3 Abs Immat Gran (auto) 0.01 (0.00-0.031) K/mm3 Absolute Neuts (auto) 4.8 (1.3-6.7) K/mm3 Absolute Nucleated RBC 0.000 (0.0-0.012) K/mm3 Nucleated RBC % 0.0 (0.0-0.2) % PT 12.6 (11.1-14.7) Seconds INR 0.9 APTT 23.6 (22.3-36.8) Seconds Sodium 138 (137-145) mmol/L Potassium 4.1 (3.4-5.0) mmol/L Chloride 104 (98-107) mmol/L Carbon Dioxide 24 (22-30) mmol/L Anion Gap 10 (4-12) mmol/L BUN 12 (7-17) mg/dL Creatinine 0.78 (0.7-1.0) mg/dL Estim Creat Clear Calc 99 ml/min Estimated GFR > 60 (59 - ) Glucose 98 (65-110) mg/dL Calcium 9.4 (8.4-10.2) mg/dL Total Bilirubin 0.5 (0.2-1.3) mg/dL AST 28 (14-36) U/L ALT 22 (6-35) U/L Alkaline Phosphatase 65 (38-126) U/L Troponin I < 0.012 < 0.012 (0.000-0.034) ng/mL Total Protein 8.0 (6.3-8.2) g/dL Albumin 3.8 (3.5-5.1) g/dL Lipase 75 (23-300) U/L <Kareem Pavon MD - Last Filed: 05/01/24 15:29> Critical Care Time Critical Care Time Critical Care Time: No <Tracy Velazquez PA-C - Last Filed: 05/02/24 09:09> Discharge Plan Discharge Clinical Impression: Atypical chest pain <Tracy Velazquez PA-C - Last Filed: 05/02/24 09:09> Patient Disposition: Home, Self-Care <Tracy Velazquez PA-C - Last Filed: 05/02/24 09:09> Condition: Stable <Tracy Velazquez PA-C - Last Filed: 05/02/24 09:09> Instructions: Antibiotic Form, Chest Pain (ED) <Tracy Velazquez PA-C - Last Filed: 05/02/24 09:09> Patient Language: Albanian <Tracy Velazquez PA-C - Last Filed: 05/02/24 09:09> Follow-up/Referrals: PHYSICIAN NOT ON STAFF,NONSTAFF [Non-Staff] - <Tracy Velazquez PA-C - Last Filed: 05/02/24 09:09> Time of Disposition: 15:28 <Tracy Velazquez PA-C - Last Filed: 05/02/24 09:09> 15:28 <Kareem Pavon MD - Last Filed: 05/01/24 15:29> Quality HEART score for chest pain patients History: slightly suspicious <Kareem Pavon MD - Last Filed: 05/01/24 15:29> ECG: normal <Kareem Pavon MD - Last Filed: 05/01/24 15:29> Age: < or = to 45 years <Kareem Pavon MD - Last Filed: 05/01/24 15:29> Risk factors: 1 or 2 risk factors <Kareem Pavon MD - Last Filed: 05/01/24 15:29> Troponin: < or = to 1x normal limit <Kareem Pavon MD - Last Filed: 05/01/24 15:29> Heart score: 1 <Tracy Velazquez PA-C - Last Filed: 05/02/24 09:09> 1 <Kareem Pavon MD - Last Filed: 05/01/24 15:29>
[2024-05-01] MEDS: ASPIRIN 81 MG CHEWABLE TABLET 324 MG PO (14:17)
[2024-05-01 14:20] VITALS: PULSE 93; O2SAT 100
[2024-05-01] MEDS: BELLADONNA ALK/PHENOB ELIX 10 ML, MAG HYDROX/ALUMINUM HYD/SIMETH 30 ML, LIDOCAINE 2% VI... PO (14:53)
[2024-05-01 15:23] LABS: Troponin I < 0.012 ng/mL (0.000-0.034)
[2024-05-01 15:45] VITALS: BP 131/82; PULSE 80; RESP 17; TEMP 36.4; O2SAT 100
== END 2024-05-01 15:50 | disposition home or self-care (01) ==
PROVIDERS: Emergency Medicine; Emergency Provider Emergency Medicine
DX: R07.89 Other chest pain (principal); I10 Essential (primary) hypertension; R94.31 Abnormal electrocardiogram [ECG] [EKG]; R00.0 Tachycardia, unspecified
CPT/HCPCS: 36415; 71046; 80053; 83690; 84484; 85025; 85610; 85730; 93005; 99284; A9270